=== PATIENT | female | born 1990 | race African-American/Black ===

== ENCOUNTER 2018-09-10 01:45 | Inpatient (IN) | payer OTHER ==
[~2018-09-10] VITALS: Ht 154.9 cm; Wt 65.6 kg
[2018-09-10] VITALS (7 sets, daily range): BP systolic 92–109; BP diastolic 61–78; PULSE 83–106; RESP 15–19; Ht 154.9 cm; Wt 65.6 kg
[~2018-09-10 01:45] MED LIST: EXJADE; HYDR500C3; HYDR500C3 PO; IBUP-1544 PO; NO NEW MEDS
[2018-09-10] MEDS ORDERED: KETOROLAC 30 MG INJ IV STA (05:37)
[2018-09-10] MEDS ORDERED: SOD CHLORIDE 0.9% 1,000 ML IV STA (05:37)
[2018-09-10] MEDS ORDERED: FENTAnyl 50 MCG/ML VIAL IV STA (06:28)
[2018-09-10] MEDS ORDERED: SOD CHLORIDE 0.9% 0 ML IV ONE (06:52)
[2018-09-10] MEDS ORDERED: ACETAMINOPHEN 325 MG TAB PO PRN ×2 (07:30→12:00)
[2018-09-10] MEDS ORDERED: ONDANSETRON 4 MG INJ IV PRN ×2 (07:30→12:00)
--- NOTE | 2018-09-10 08:58 | ERD ---
ER Documentation Chief Complaint Chief Complaint noe leg pain x2 days. hx sickle cell HPI 27-year-old sickle cell anemia patient presents to the emergency room with exacerbation of sickle cell pain. She describes 8 out of 10 throbbing pain in the left leg which is in a similar location. No recent fevers chills cough or chest pain. Her usual trigger is the environment it is been very cold recently. ROS All systems reviewed and are negative except as per history of present illness. Medications Home Meds Reported Medications Hydroxyurea* (Hydroxyurea*) 500 Mg Capsule, 500 MG PO DAILY 10/08/12 Discontinued Reported Medications [Exjade] No Conflict Check 10/08/12 [Exjade] No Conflict Check 01/06/12 [No New Meds] No Conflict Check 10/07/11 Hydroxyurea* (Hydroxyurea*) 500 Mg Capsule, 2500 DIRECTED 10/06/11 Ibuprofen* (Ibuprofen*) 800 Mg Tablet, 800 MG PO Q6 05/28/11 Allergies Allergies: Coded Allergies: oxycodone HCl (Verified Allergy, Severe, 09/10/18) hydromorphone (Verified Allergy, Unknown, 09/10/18) morphine (Verified Allergy, Unknown, 09/10/18) oxycodone (Verified Allergy, Unknown, 09/10/18) vancomycin (Verified Allergy, Unknown, 09/10/18) PMhx/Soc History of Surgery: Yes (HIP SURGERY; GALLBLADDER SURGERY) Anesthesia Reaction: No Hx Neurological Disorder: No Hx Respiratory Disorders: No Hx Cardiac Disorders: No Hx Psychiatric Problems: No Hx Miscellaneous Medical Probl: Yes (SICKLE CELL ANEMIA) Hx Alcohol Use: No Hx Substance Use: No Hx Tobacco Use: No Smoking Status: Never smoker FmHx Family History: No diabetes Physical Exam Vitals Vital Signs Date Temp Pulse Resp B/P (MAP) Pulse Ox O2 O2 Flow FiO2 Time Delivery Rate 09/10/18 87 17 94/73 (80) 98 Room Air 07:41 09/10/18 99.4 103 20 105/57 97 01:55 (73) Physical Exam General: Uncomfortable Head: Normocephalic, atraumatic. Eyes: Pupils equally reactive, EOM intact ENT: Moist mucous membranes Neck: Supple, no lymphadenopathy Respiratory: Lungs clear bilaterally, no distress Cardiovascular: RRR, no murmurs, rubs, or gallops Abdominal: Soft, non-tender, non-distended, no peritoneal signs : Deferred MSK: No edema, no unilateral swelling, 5/5 strength Neurologic: Alert and oriented, moving all extremities, normal speech, no focal weakness, no cerebellar signs Skin: No rash Psych: Normal mood Result Diagram: 09/10/18 0618 09/10/18 0617 Results 24 hrs Laboratory Tests Test 09/10/18 06:17 09/10/18 06:18 09/10/18 07:12 Sodium Level 140 mmol/L Potassium Level 3.8 mmol/L Chloride Level 113 mmol/L Carbon Dioxide Level 24 mmol/L Anion Gap 3 Blood Urea Nitrogen 5 mg/dl Creatinine 0.43 mg/dl Est Glomerular Filtrat > 60 mL/min Rate mL/min Glucose Level 92 mg/dl Calcium Level 9.1 mg/dl White Blood Count 10.1 10^3/ul Red Blood Count 1.89 10^6/ul Hemoglobin 6.4 g/dl Hematocrit 18.7 % Mean Corpuscular Volume 98.9 fl Mean Corpuscular Hemoglobin 33.9 pg Mean Corpuscular 34.2 g/dl Hemoglobin Concent Red Cell Distribution Width 20.2 % Platelet Count 498 10^3/UL Mean Platelet Volume 9.5 fl Immature Granulocytes % 0.400 % Neutrophils % 64.8 % Segmented Neutrophils % (Manual) 58 % Lymphocytes % 25.0 % Lymphocytes % (Manual) 32 % Monocytes % 6.9 % Monocytes % (Manual) 6 % Eosinophils % 2.3 % Eosinophils % (Manual) 4 % Basophils % 0.6 % Nucleated Red Blood Cells % 7 % Immature Granulocytes # 0.040 10^3/ul Neutrophils # 6.6 10^3/ul Lymphocytes (Manual) 3.2 10^3/ul Lymphocytes # 2.5 10^3/ul Monocytes # 0.7 10^3/ul Monocytes # (Manual) 0.6 10^3/ul Eosinophils # 0.2 10^3/ul Basophils # 0.1 10^3/ul Nucleated Red Blood Cells # 0.6 10^3/ul Pathologist Review (Hematology) YES Platelet Estimate INCREASED Giant Platelets 2 % Polychromasia 3+ Hypochromasia 1+ Poikilocytosis 1+ Anisocytosis 2+ Macrocytosis 1+ Sickle Cells 2+ Target Cells 1+ Ovalocytes 1+ Elliptocytes 1+ Urine Color YELLOW Urine Clarity CLEAR Urine pH 5.0 Urine Specific [place] 1.009 Urine Ketones NEGATIVE mg/dL Urine Nitrite NEGATIVE mg/dL Urine Bilirubin NEGATIVE mg/dL Urine Urobilinogen NEGATIVE mg/dL Urine Leukocyte Esterase NEGATIVE Ivon/ul Urine Microscopic RBC 0 /HPF Urine Microscopic WBC 1 /HPF Urine Bacteria FEW /HPF Urine Mucus FEW /HPF Urine Hemoglobin 1+ mg/dL Urine Glucose NEGATIVE mg/dL Urine Total Protein NEGATIVE mg/dl Absolute Reticulocyte Count 0.329 X10^6 Percent Reticulocyte Count 19.3 % Total Bilirubin 3.5 mg/dl Direct Bilirubin 0.00 mg/dl Indirect Bilirubin 3.5 mg/dl Aspartate Amino Transf (AST/SGOT) 25 IU/L Alanine 14 IU/L Aminotransferase (ALT/SGPT) Alkaline Phosphatase 34 IU/L Total Protein 6.8 g/dl Albumin 3.9 g/dl Current Medications Medications Dose Sig/Sukhi Start Time Status Last (Trade) Ordered Route PRN Stop Time Admin Dose Reason Admin Sodium 1,000 ml @ Q1H STAT 09/10/18 DC 09/10/18 Chloride 1,000 mls/hr IV 05:37 05:37 09/10/18 06:36 Ketorolac 30 mg ONCE STAT 09/10/18 DC 09/10/18 Tromethamine IV 05:37 06:51 (Toradol) 09/10/18 05:38 Fentanyl 75 mcg ONCE STAT 09/10/18 DC 09/10/18 (Sublimaze) IV 06:28 06:51 09/10/18 06:31 Sodium 0 ml @ 0 Q0M ONCE 09/10/18 DC Chloride mls/hr IV 06:52 09/10/18 06:54 Ondansetron 4 mg BRIDGE ORDER 09/10/18 HCl (Zofran PRN IV 07:30 Inj) NAUSEA/VOMITI 09/11/18 07:29 NG 650 mg ER BRIDGE 09/10/18 Acetaminophen PRN PO 07:30 (Tylenol .MILD PAIN 09/11/18 07:29 Tab) 1-3 OR TEMP Procedures/MDM LAB INTERPRETATION: I reviewed the laboratory testing and it shows evidence of hemolysis and elevated reticulocyte count MEDICAL DECISION MAKING: The patient presents with a acute exacerbation of pain crisis. The patient's exacerbation is likely secondary to cold weather. Patient will benefit from fluids and pain control medications. The patient's laboratory testing does show evidence of anemia that she would benefit from transfusion. For this reason the patient will be admitted for further management. I discussed with the patient and/or family the risks, benefits, alternatives of blood transfusion. This includes allergic reaction and infections including HIV and hepatitis. The patient and/or family were able to verbalize these risks, stated understanding. A document has been signed and placed in the chart. The patient is typed and crossmatched for 1 unit of packed red blood cells. The patient does describe a history of iron overload and needing chelation therapy. I spoke to Dr. Jang, our hematology oncology physician and she states that this can be done after the transfusion and outpatient basis in a nonemergent setting. She agrees with moving forward with blood transfusion and treatment of the patient's pain crisis. ER COURSE: * Patient was given IV fluids, pain control medication * The patient will be transfused 1 unit of packed red blood cells * Pain is improving. * No signs or symptoms concerning for acute chest or systemic illness. CONSULTATION: Hematology oncology: Dr. Jang DISPOSITION PLAN: Accepting care team and consultations: I discussed the current laboratory data, diagnostic imaging and emergency care provided. Admitting team: Dr. Ramos Admitting team indication: Insurance directed Departure Diagnosis: Primary Impression: Sickle cell pain crisis Additional Impression: Symptomatic anemia Condition: Stable TANIKA RAHMAN MD Sep 10, 2018 08:58
[2018-09-10] MEDS ORDERED: FENTAnyl 50 MCG/ML VIAL IV PRN (09:30)
[2018-09-10] MEDS ORDERED: HYDR-3980 PO (11:25)
[2018-09-10] MEDS ORDERED: NACL 0.9% 3 ML SYG IV SCH (12:00)
[2018-09-10] MEDS ORDERED: SOD CHLORIDE 0.9% 500 ML IV ONE (12:15)
[2018-09-10] MEDS ORDERED: HYDROCODONE/APAP (5/325) TAB PO PRN (12:30)
--- NOTE | 2018-09-10 12:44 | HP ---
Date/Time of Note Date/Time of Note DATE: 09/10/18 TIME: 12:39 Assessment/Plan VTE Prophylaxis SCD applied (from Nsg): Yes Pharmacological prophylaxis: LMWH Lines/Catheters IV Catheter Type (from Nrsg): Peripheral IV Assessment/Plan Hospital Course SUBJECTIVE: Patient crying extremely with 10 out of 10 pain on bilateral lower extremities. She says "my bones are breaking" OBJECTIVE: Vital signs-see below PHYSICAL EXAM: Constitutional: Young -Italian female, in a lot of pain 10 out of 10 on lower extremities. Psych: nl mood/affect, no complaints Head: atraumatic, normocephalic Eyes: nl conjunctiva, nl sclera ENMT: mucosa pink and moist, nl external ears & nose Neck: non-tender, supple Respiratory: clear to auscultation, normal air movement Cardiovascular: nl pulses, regular rate and rhythm Gastrointestinal: non-tender, soft, bowel sounds active in all 4 quadrants. Musculoskeletal/extremities: nl extremities to inspection, motor strength equal bilaterally, no focal deficit. Normal pulses,no cyanosis, no edema. Neurological: Alert oriented 3,nl speech, nl strength Skin: nl turgor ASSESSMENT/PLAN: 27-year-old female with history of sickle cell anemia, here with sickle cell crisis. 1. Acute sickle cell crisis -Fluid challenge -Unfortunately, due to multiple opiate allergies, we will do IV pain control w/ Toradol with limited dose while monitoring renal function closely. We will also start patient on IV Tylenol x 24 hours duration => if no improvement in pain status, will need to consider for fentanyl and transferring patient to ICU level of care. -Consulted Dr. Khan for pain management -No symptoms concerning for cardiac acute issues. -VTE prophylaxis -Ultrasound to rule out DVTs 2. Sickle cell anemia -HH 6.4/18.7 -Receiving 1 unit PRBC=>Judicious tx in the setting of elevated ferritin... -Repeat H&H after transfusion 3. Elevated ferritin -ER spoke with oncologist , who recommended outpatient follow-up for consideration for chelation treatment if indicated. -Judicious transfusion... DVT prophylaxis: Lovenox PUD prophylaxis: Protonix CODE STATUS: Full code Diet: Regular Rest of the management depend on hospital course. Approximately 60 m spent on this history and physical. Patient was seen in collaboration with Dr.Brian Result Diagram: 09/10/18 0618 09/10/18 0617 Results 24hrs Laboratory Tests Test 09/10/18 06:17 09/10/18 06:18 09/10/18 07:12 Sodium Level 140 Potassium Level 3.8 Chloride Level 113 H Carbon Dioxide Level 24 Anion Gap 3 L Blood Urea Nitrogen 5 L Creatinine 0.43 L Est Glomerular Filtrat Rate mL/min > 60 Glucose Level 92 Calcium Level 9.1 White Blood Count 10.1 Red Blood Count 1.89 L Hemoglobin 6.4 *L Hematocrit 18.7 L Mean Corpuscular Volume 98.9 Mean Corpuscular Hemoglobin 33.9 H Mean Corpuscular Hemoglobin Concent 34.2 Red Cell Distribution Width 20.2 H Platelet Count 498 H Mean Platelet Volume 9.5 Immature Granulocytes % 0.400 Neutrophils % 64.8 Segmented Neutrophils % (Manual) 58 Lymphocytes % 25.0 Lymphocytes % (Manual) 32 Monocytes % 6.9 Monocytes % (Manual) 6 Eosinophils % 2.3 Eosinophils % (Manual) 4 Basophils % 0.6 Nucleated Red Blood Cells % 7 H Immature Granulocytes # 0.040 H Neutrophils # 6.6 Lymphocytes (Manual) 3.2 H Lymphocytes # 2.5 Monocytes # 0.7 Monocytes # (Manual) 0.6 Eosinophils # 0.2 Basophils # 0.1 Nucleated Red Blood Cells # 0.6 H Pathologist Review (Hematology) YES Platelet Estimate INCREASED Giant Platelets 2 H Polychromasia 3+ Hypochromasia 1+ Poikilocytosis 1+ Anisocytosis 2+ Macrocytosis 1+ Sickle Cells 2+ Target Cells 1+ Ovalocytes 1+ Elliptocytes 1+ Urine Color YELLOW Urine Clarity CLEAR Urine pH 5.0 Urine Specific [place] 1.009 Urine Ketones NEGATIVE Urine Nitrite NEGATIVE Urine Bilirubin NEGATIVE Urine Urobilinogen NEGATIVE Urine Leukocyte Esterase NEGATIVE Urine Microscopic RBC 0 Urine Microscopic WBC 1 Urine Bacteria FEW A Urine Mucus FEW A Urine Hemoglobin 1+ H Urine Glucose NEGATIVE Urine Total Protein NEGATIVE Absolute Reticulocyte Count 0.329 H Percent Reticulocyte Count 19.3 H Ferritin 3040.0 H Total Bilirubin 3.5 H Direct Bilirubin 0.00 Indirect Bilirubin 3.5 H Aspartate Amino Transf (AST/SGOT) 25 Alanine Aminotransferase (ALT/SGPT) 14 Alkaline Phosphatase 34 L Total Protein 6.8 Albumin 3.9 HPI/ROS Admit Date/Time Admit Date/Time Sep 10, 2018 at 07:21 Hx of Present Illness 27-year-old AA female with sickle cell anemia, came to the emergency room with severe lower extremity pain. Patient denied chest pain, palpitation, shortness of breath, nausea, vomiting, abdominal pain, loss of consciousness, dizziness, numbness, tingling or other constitutional symptoms. Patient's labs showed hemoglobin 6.4, hematocrit 18.7, platelet 498, positive nucleated RBCs. Patient also noted with highly elevated ferritin level 3040. UA unremarkable. In ER, patient was given 75 mcg fentanyl IV, normal saline bolus, 30 mg Toradol and patient was admitted to medical surgical floor for pain management. ROS A 12 point review of system was assessed and is negative other than what is mentioned in the HPI. PMH/Family/Social Past Medical History See HPI Medications Current Medications Ondansetron HCl (Zofran Inj) 4 mg BRIDGE ORDER PRN IV NAUSEA/VOMITING; Start 09/10/18 at 07:30; Stop 09/11/18 at 07:29 Acetaminophen (Tylenol Tab) 650 mg ER BRIDGE PRN PO .MILD PAIN 1-3 OR TEMP; S tart 09/10/18 at 07:30; Stop 09/11/18 at 07:29 Sodium Chloride 1,000 ml @ 125 mls/hr Q8H IV ; Start 09/10/18 at 13:00 IV Flush (NS 3 ml) 3 ml PER PROTOCOL IV ; Start 09/10/18 at 12:00 Ondansetron HCl (Zofran Inj) 4 mg Q6H PRN IV NAUSEA/VOMITING; Start 09/10/18 at 12:00 Acetaminophen (Tylenol Tab) 650 mg Q6H PRN PO .PAIN 1-3 OR TEMP; Start 09/10/18 at 12:00 Docusate Sodium (Colace) 100 mg Q12H PRN PO .CONSTIPATION; Start 09/10/18 at 12:00 Famotidine (Pepcid) 20 mg Q12 PO ; Start 09/10/18 at 21:00 Sodium Chloride 500 ml @ 500 mls/hr Q1H ONCE IV ; Start 09/10/18 at 12:15; Stop 09/10/18 at 13:14 Acetaminophen/ Hydrocodone Bitart ([place] (5/325)) 1 tab Q4H PRN PO MODERATE PAIN LEVEL 4-6 Last administered on 09/10/18at 12:23; Admin Dose 1 TAB; Start 09/10/18 at 12:30 Ketorolac Tromethamine (Toradol) 30 mg Q6H PRN IV PAIN LEVEL 1-3; Start 09/10/18 at 12:30; Stop 09/13/18 at 12:29 Coded Allergies: oxycodone HCl (Verified Allergy, Severe, 09/10/18) hydromorphone (Verified Allergy, Unknown, 09/10/18) morphine (Verified Allergy, Unknown, 09/10/18) oxycodone (Verified Allergy, Unknown, 09/10/18) vancomycin (Verified Allergy, Unknown, 09/10/18) Past Surgical History None Social History Denies history of alcohol, smoking or illicit drug use. Smoking Status: Never smoker Exam/Review of Systems Vital Signs Vitals Vital Signs Date Temp Pulse Resp B/P (MAP) Pulse Ox O2 O2 Flow FiO2 Time Delivery Rate 09/10/18 98.9 92 17 109/69 96 Room Air 11:28 (82) JUAQUIN PARDO NP Sep 10, 2018 12:44
[2018-09-10] MEDS: KETOROLAC 30 MG INJ IV PRN ×2 (12:59→20:01)
[2018-09-10] MEDS: SOD CHLORIDE 0.9% 1,000 ML IV SCH ×2 (13:14→19:52)
[2018-09-10] MEDS: ENOXAPARIN 40 MG/0.4 ML SYG SC SCH (13:14)
[2018-09-10] MEDS: ACETAMINOPHEN 1000MG/100ML IV 100 ML IVPB SCH ×2 (14:40→20:30)
[2018-09-10] MEDS ORDERED: SOD CHLORIDE 0.9% 250 ML IV* ONE (15:35)
[2018-09-10] MEDS: FENTAnyl 50 MCG/ML VIAL IV PRN (20:02)
[2018-09-10] MEDS: FAMOTIDINE 20 MG TAB PO SCH (20:30)
[2018-09-11] VITALS (24 sets, daily range): BP systolic 82–110; BP diastolic 57–86; PULSE 65–103; RESP 13–28
[2018-09-11] MEDS: SOD CHLORIDE 0.9% 1,000 ML IV SCH ×4 (00:56→18:33)
[2018-09-11] MEDS: FENTAnyl 50 MCG/ML VIAL IV PRN ×7 (01:22→21:45)
[2018-09-11] MEDS: KETOROLAC 30 MG INJ IV PRN ×3 (03:13→16:38)
[2018-09-11] MEDS: ACETAMINOPHEN 1000MG/100ML IV 100 ML IVPB SCH ×2 (03:13→08:47)
[2018-09-11] MEDS ORDERED: FENTAnyl 50 MCG/ML VIAL IV ONE (03:30)
--- NOTE | 2018-09-11 06:53 | QN ---
Documentation Comment Patient's hemoglobin once again low, however, patient has refused additional packed red blood cell due to her elevated ferritin levels, will defer to day team physician to determine if additional transfusion is necessary and if they can convince patient to get transfusion. HEATH LEVIN Sep 11, 2018 06:53
[2018-09-11] MEDS: FAMOTIDINE 20 MG TAB PO SCH ×3 (08:41→21:45)
[2018-09-11] MEDS: HYDROXYUREA 500 MG CAP PO SCH (09:00)
[2018-09-11] MEDS: ENOXAPARIN 40 MG/0.4 ML SYG SC SCH (09:19)
--- NOTE | 2018-09-11 10:59 | CONS ---
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 She has been transfused I agree to continue to increase her hemoglobin higher than 6, patient's baseline is 7.5. Also agree with IV hydration, deferoxamine, will discuss patient's pnenmonia and influenza vaccinations status after she is more stable. Consultation Date/Type/Reason Admit Date/Time Sep 10, 2018 at 07:21 Date/Time of Note DATE: 09/11/18 TIME: 10:49 Hx of Present Illness This is a pain management consultation on this 27-year-old female who has a history of sickle cell crisis. Is certain that may have caused this crisis. She denies nausea vomiting chest pain shortness of breath cough hemoptysis greenish yellowish mucus or pleuritic chest pain. She denies abdominal discomfort diarrhea constipation frequency or burning when she urinates she states that she has joint pains that she describes as total body discomfort with except "exploding bones" and bilateral lower extremity. However she does states this is her usual presentation. Patient's takes [place] Toradol and hydroxyurea 500 mg daily at home for exacerbation of pain but she states that this pain degree could not be controlled with above medications. Otherwise she states this is her usual presentation for the severity of her pain. She states that she has been treated in the past only with fentanyl she has untoward side effects associated with morphine Dilaudid most oral pain control medication with the exception of [place]. When asked what type of reaction he had asked she states that she has severe pain in her back when she receives Dilaudid or morphine. All of her health care has been given to her at [facility]. Because of insurance situation she was transferred to this hospital per patient. She states that only fentanyl works for her pain with as needed doses also of Toradol. We explained to her that Toradol cannot be given on the medical surgical floor nor in the telemetry floor. In spite of that we had made arrangements for him to be transferred to the intensive care unit to be treated with fentanyl for exacerbation of pain with possible morbid untoward side effects associated with use of other IV opioids. There is no indication to use topical fentanyl as is not mediately titratable at the rate this patient may require higher doses of fentanyl.. Constitutional: no complaints, improved Eyes: no complaints ENT: no complaints Respiratory: no complaints Cardiovascular: no complaints Gastrointestinal: no complaints Genitourinary: no complaints Musculoskeletal: other (Refer to history of present illness) Skin: no complaints Neurologic: no complaints Endocrine: no complaints Lymphatic: no complaints Psychological: no complaints, nl mood/affect Immunologic: no complaints Past Medical History Home Meds Reported Medications Hydrocodone/Acetaminophen ([place] 10-325 Tablet) 1 Each Tablet, 1 EACH PO, TAB 09/10/18 Hydroxyurea* (Hydroxyurea*) 500 Mg Capsule, 500 MG PO DAILY 10/08/12 Discontinued Reported Medications [Exjade] No Conflict Check 10/08/12 [Exjade] No Conflict Check 01/06/12 [No New Meds] No Conflict Check 10/07/11 Hydroxyurea* (Hydroxyurea*) 500 Mg Capsule, 2500 DIRECTED 10/06/11 Ibuprofen* (Ibuprofen*) 800 Mg Tablet, 800 MG PO Q6 05/28/11 Medications Current Medications Sodium Chloride 1,000 ml @ 125 mls/hr Q8H IV Last administered on 09/11/18at 10:21; Admin Dose 125 MLS/HR; Start 09/10/18 at 13:00 IV Flush (NS 3 ml) 3 ml PER PROTOCOL IV ; Start 09/10/18 at 12:00 Ondansetron HCl (Zofran Inj) 4 mg Q6H PRN IV NAUSEA/VOMITING; Start 09/10/18 at 12:00 Acetaminophen (Tylenol Tab) 650 mg Q6H PRN PO .PAIN 1-3 OR TEMP; Start 09/10/18 at 12:00 Docusate Sodium (Colace) 100 mg Q12H PRN PO .CONSTIPATION; Start 09/10/18 at 12:00 Famotidine (Pepcid) 20 mg Q12 PO Last administered on 09/11/18at 08:41; Admin Dose 20 MG; Start 09/10/18 at 21:00 Enoxaparin Sodium (Lovenox) 40 mg DAILY SC Last administered on 09/11/18at 09:19; Admin Dose 40 MG; Start 09/10/18 at 12:30 Hydroxyurea (Hydrea) 500 mg DAILY PO ; Start 09/11/18 at 09:00 Acetaminophen 100 ml @ 400 mls/hr Q6H IVPB Last administered on 09/11/18at 08:47; Admin Dose 400 MLS/HR; Start 09/10/18 at 15:30; Stop 09/11/18 at 15:29 Fentanyl (Sublimaze) 50 mcg Q3H PRN IV SEVERE PAIN LEVEL 7-10 Last administered on 09/11/18at 08:47; Admin Dose 50 MCG; Start 09/10/18 at 17:00 Allergies: Coded Allergies: oxycodone HCl (Verified Allergy, Severe, 09/10/18) hydromorphone (Verified Allergy, Unknown, 09/10/18) morphine (Verified Allergy, Unknown, 09/10/18) oxycodone (Verified Allergy, Unknown, 09/10/18) vancomycin (Verified Allergy, Unknown, 09/10/18) Past Surgical History Past Surgical Hx: other (In distress cannot answer questions at this time) Social History Alcohol Use: none Smoking Status: Never smoker Exam/Review of Systems Exam Vitals Vital Signs Date Temp Pulse Resp B/P (MAP) Pulse Ox O2 O2 Flow FiO2 Time Delivery Rate 09/11/18 65 08:00 09/11/18 14 90/61 (71) 100 06:00 09/11/18 Nasal 2.0 05:00 Cannula 09/11/18 98.3 04:00 Intake and Output 09/10/18 09/10/18 09/11/18 1515:00 23:00 07:00 IntakeIntake Total 950 ml 1220 ml 975 ml OutputOutput Total 300 ml 500 ml BalanceBalance 950 ml 920 ml 475 ml Constitutional: distress, frail Psych: anxiety Head: normocephalic, atraumatic; No lacerations, No hematomas, No other Eyes: nl conjunctiva, EOMI, nl lids, nl sclera, PERRL ENMT: nl external ears & nose, nl lips & teeth, nl nasal mucosa & septum; No mucosa pink and moist, No intubated, No tympanic membranes, No other Neck: supple, non-tender; No jvd, No bruits, No masses, No thyromegaly, No nuchal rigidity, No other Respiratory: clear to auscultation, normal air movement; No congested cough, No crackles/rales, No diminished breath sounds, No intercostal retraction, No labored breathing, No respirations, No tactile f remitus, No wheezing, No other Cardiovascular: regular rate and rhythm, nl pulses; No bruits, No diastolic murmur, No edema, No gallop, No irregular rhythm, No jugular venous distention (JVD), No murmurs/extra sounds, No rub, No systolic murmur, No S3, No S4, No other Gastrointestinal: soft, nl liver, spleen, non-tender; No ascites, No bowel sounds, No distended, No firm, No hepatomegaly, No mass, No rebound or guarding, No splenomegaly, No surgical scars, No tender, No other Musculoskeletal: other (Range of motion bilateral lower extremities grossly intact, pain associated with flexion extension internal and external rotation bilateral knees bilateral ankles no gross evidence of erythema streaking edema flocculence); No nl extremities to inspection, No nl gait and stance, No joint tenderness, No muscle tone, No muscle weakness, No range of motion, No spine non-tender, No swelling Neurological: 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-XII intact, nl mental status, nl speech, nl strength; No confused, No DTR's symmetric, No focal weakness, No lethargic, No numbness, No reflexes, No unresponsive, No other Results Result Diagram: 09/11/18 0510 09/11/18 0510 Results 24hrs Laboratory Tests Test 09/10/18 14:40 09/11/18 05:10 Hemoglobin 6.8 *L 6.3 *L Hematocrit 19.7 L 18.3 L White Blood Count 7.2 # Red Blood Count 2.01 L Mean Corpuscular Volume 91.0 Mean Corpuscular Hemoglobin 31.3 Mean Corpuscular Hemoglobin Concent 34.4 Red Cell Distribution Width 24.5 #H Platelet Count 418 H Mean Platelet Volume 9.3 Immature Granulocytes % 0.400 Neutrophils % Segmented Neutrophils % (Manual) 58 Band Neutrophils % (Manual) 1 Lymphocytes % Lymphocytes % (Manual) 35 Monocytes % Monocytes % (Manual) 3 Eosinophils % Eosinophils % (Manual) 3 Basophils % Nucleated Red Blood Cells % 5 H Immature Granulocytes # 0.030 Neutrophils # Neutrophils # (Manual) 4.2 Band Neutrophils # 0.0 Lymphocytes (Manual) 2.5 Lymphocytes # Monocytes # Monocytes # (Manual) 0.2 L Eosinophils # Basophils # Nucleated Red Blood Cells # Platelet Estimate NORMAL Giant Platelets 1 H Polychromasia 3+ Poikilocytosis 2+ Anisocytosis 2+ Microcytosis 2+ Macrocytosis 1+ Sickle Cells 2+ Sodium Level 140 Potassium Level 3.5 Chloride Level 111 H Carbon Dioxide Level 23 Anion Gap 6 Blood Urea Nitrogen 8 Creatinine 0.41 L Est Glomerular Filtrat Rate mL/min > 60 Glucose Level 90 Calcium Level 8.6 Magnesium Level 2.1 Medications Medication Current Medications Sodium Chloride 1,000 ml @ 125 mls/hr Q8H IV Last administered on 09/11/18at 10:21; Admin Dose 125 MLS/HR; Start 09/10/18 at 13:00 IV Flush (NS 3 ml) 3 ml PER PROTOCOL IV ; Start 09/10/18 at 12:00 Ondansetron HCl (Zofran Inj) 4 mg Q6H PRN IV NAUSEA/VOMITING; Start 09/10/18 at 12:00 Acetaminophen (Tylenol Tab) 650 mg Q6H PRN PO .PAIN 1-3 OR TEMP; Start 09/10/18 at 12:00 Docusate Sodium (Colace) 100 mg Q12H PRN PO .CONSTIPATION; Start 09/10/18 at 12:00 Famotidine (Pepcid) 20 mg Q12 PO Last administered on 09/11/18at 08:41; Admin Dose 20 MG; Start 09/10/18 at 21:00 Enoxaparin Sodium (Lovenox) 40 mg DAILY SC Last administered on 09/11/18 09:19; Admin Dose 40 MG; Start 09/10/18 at 12:30 Hydroxyurea (Hydrea) 500 mg DAILY PO ; Start 09/11/18 at 09:00 Acetaminophen 100 ml @ 400 mls/hr Q6H IVPB Last administered on 09/11/18at 08:47; Admin Dose 400 MLS/HR; Start 09/10/18 at 15:30; Stop 09/11/18 at 15:29 Fentanyl (Sublimaze) 50 mcg Q3H PRN IV SEVERE PAIN LEVEL 7-10 Last administered on 09/11/18at 08:47; Admin Dose 50 MCG; Start 09/10/18 at 17:00 KATIE TORRES Sep 11, 2018 10:59
--- NOTE | 2018-09-11 14:23 | CONS ---
Assessment/Plan Assessment/Plan Assessment/Plan (Daily) #Sickle Cell Crisis #iron over load -pt's Hg has dropped to 6 which is certainly lower than her baseline of 7-8. -patient states that she does not want to accept blood transfusion unless she can also get an iron chelator given her iron overload. -will start Deferoxamine 2600mg IV q day s 5 - 7 days IV. ferritin is currently > 3000 -once she has started the iron chelation we can transfuse 2 units of PRBCS. -continue fentanyl and toradol per pain management Thank you for the opportunity to participate in this patients care A total of 40 minutes of face to face time was spent speaking with the patient, of which greater than 50% was spent in counseling and coordination of care and the detailed question and answer session. Consultation Date/Type/Reason Admit Date/Time Sep 10, 2018 at 07:21 Date of Consultation: Sep 11, 2018 Type of Consult Hematology Reason for Consultation sickle cell crisis Requesting Provider: EBONY CONTE Date/Time of Note DATE: 09/11/18 TIME: 14:11 Hx of Present Illness 27 yo female with Sickle Cell Anemia and iron over load who presented on 09/10/18 to [facility] ER with sickle cell crisis stating my bones are breaking. Patient has since been started on IV fluids and O2. AT home her pain is usually controlled with [place], Toradol and Hydroxyurea. Although now, pt states fentanyl is the only pain medication that works for her. Pt has been transferred to the ICU for more careful monitoring. Pt states she is concerned about a blood transfusion due to her current state of iron over load. On admission, patients HG 6.4 and ferritin is at 3040. Pt states her baseline Hg is usually between 7-8. Constitutional: diaphoresis, poor po, requiring O2 Eyes: no complaints ENT: no complaints Respiratory: no complaints, pain, pleuritic pain, shortness of breath Cardiovascular: chest pain, lightheadedness Gastrointestinal: no complaints, pain, decreased appetite, nausea Musculoskeletal: back pain, bone/joint pain, neck pain, restricted range of motion Skin: no complaints Neurologic: dizziness, headache Endocrine: no complaints Psychological: anxiety, depression Past Medical History Home Meds Reported Medications Hydrocodone/Acetaminophen ([place] 10-325 Tablet) 1 Each Tablet, 1 EACH PO, TAB 09/10/18 Hydroxyurea* (Hydroxyurea*) 500 Mg Capsule, 500 MG PO DAILY 10/08/12 Discontinued Reported Medications [Exjade] No Conflict Check 10/08/12 [Exjade] No Conflict Check 01/06/12 [No New Meds] No Conflict Check 10/07/11 Hydroxyurea* (Hydroxyurea*) 500 Mg Capsule, 2500 DIRECTED 10/06/11 Ibuprofen* (Ibuprofen*) 800 Mg Tablet, 800 MG PO Q6 05/28/11 Medications Current Medications Sodium Chloride 1,000 ml @ 150 mls/hr Q6H40M IV Last administered on 09/11/18at 11:32; Admin Dose 150 MLS/HR; Start 09/10/18 at 13:00 IV Flush (NS 3 ml) 3 ml PER PROTOCOL IV ; Start 09/10/18 at 12:00 Ondansetron HCl (Zofran Inj) 4 mg Q6H PRN IV NAUSEA/VOMITING; Start 09/10/18 at 12:00 Acetaminophen (Tylenol Tab) 650 mg Q6H PRN PO .PAIN 1-3 OR TEMP; Start 09/10/18 at 12:00 Docusate Sodium (Colace) 100 mg Q12H PRN PO .CONSTIPATION; Start 09/10/18 at 1 2:00 Famotidine (Pepcid) 20 mg Q12 PO Last administered on 09/11/18at 08:41; Admin Dose 20 MG; Start 09/10/18 at 21:00 Enoxaparin Sodium (Lovenox) 40 mg DAILY SC Last administered on 09/11/18at 09:19; Admin Dose 40 MG; Start 09/10/18 at 12:30 Hydroxyurea (Hydrea) 500 mg DAILY PO ; Start 09/11/18 at 09:00 Acetaminophen 100 ml @ 400 mls/hr Q6H IVPB Last administered on 09/11/18at 08:47; Admin Dose 400 MLS/HR; Start 09/10/18 at 15:30; Stop 09/11/18 at 15:29 Fentanyl (Sublimaze) 50 mcg Q3H PRN IV SEVERE PAIN LEVEL 7-10 Last administered on 09/11/18at 11:54; Admin Dose 50 MCG; Start 09/10/18 at 17:00 Ketorolac Tromethamine (Toradol) 30 mg Q6H PRN IV PAIN; Start 09/11/18 at 16:30; Stop 09/14/18 at 16:29 Allergies: Coded Allergies: oxycodone HCl (Verified Allergy, Severe, 09/10/18) hydromorphone (Verified Allergy, Unknown, 09/10/18) morphine (Verified Allergy, Unknown, 09/10/18) oxycodone (Verified Allergy, Unknown, 09/10/18) vancomycin (Verified Allergy, Unknown, 09/10/18) Past Surgical History Past Surgical Hx: other (In distress cannot answer questions at this time) Social History Alcohol Use: none Smoking Status: Never smoker Exam/Review of Systems Exam Vitals Vital Signs Date Temp Pulse Resp B/P (MAP) Pulse Ox O2 O2 Flow FiO2 Time Delivery Rate 09/11/18 96 20 88/64 (72) 100 Nasal 2.0 13:00 Cannula 09/11/18 98.2 12:00 Intake and Output 09/10/18 09/10/18 09/11/18 1515:00 23:00 07:00 IntakeIntake Total 950 ml 1220 ml 1100 ml OutputOutput Total 300 ml 500 ml BalanceBalance 950 ml 920 ml 600 ml Constitutional: alert, oriented, distress, frail Psych: anxiety, depression Head: normocephalic, atraumatic Eyes: nl conjunctiva ENMT: nl external ears & nose Neck: supple Respiratory: clear to auscultation Cardiovascular: regular rate and rhythm Gastrointestinal: soft Musculoskeletal: joint tenderness, muscle weakness Results Result Diagram: 09/11/18 0510 09/11/18 0510 Results 24hrs Laboratory Tests Test 09/10/18 14:40 09/11/18 05:10 Hemoglobin 6.8 *L 6.3 *L Hematocrit 19.7 L 18.3 L White Blood Count 7.2 # Red Blood Count 2.01 L Mean Corpuscular Volume 91.0 Mean Corpuscular Hemoglobin 31.3 Mean Corpuscular Hemoglobin Concent 34.4 Red Cell Distribution Width 24.5 #H Platelet Count 418 H Mean Platelet Volume 9.3 Immature Granulocytes % 0.400 Neutrophils % Segmented Neutrophils % (Manual) 58 Band Neutrophils % (Manual) 1 Lymphocytes % Lymphocytes % (Manual) 35 Monocytes % Monocytes % (Manual) 3 Eosinophils % Eosinophils % (Manual) 3 Basophils % Nucleated Red Blood Cells % 5 H Immature Granulocytes # 0.030 Neutrophils # Neutrophils # (Manual) 4.2 Band Neutrophils # 0.0 Lymphocytes (Manual) 2.5 Lymphocytes # Monocytes # Monocytes # (Manual) 0.2 L Eosinophils # Basophils # Nucleated Red Blood Cells # Platelet Estimate NORMAL Giant Platelets 1 H Polychromasia 3+ Poikilocytosis 2+ Anisocytosis 2+ Microcytosis 2+ Macrocytosis 1+ Sickle Cells 2+ Sodium Level 140 Potassium Level 3.5 Chloride Level 111 H Carbon Dioxide Level 23 Anion Gap 6 Blood Urea Nitrogen 8 Creatinine 0.41 L Est Glomerular Filtrat Rate mL/min > 60 Glucose Level 90 Calcium Level 8.6 Magnesium Level 2.1 Medications Medication Current Medications Sodium Chloride 1,000 ml @ 150 mls/hr Q6H40M IV Last administered on 09/11/18at 11:32; Admin Dose 150 MLS/HR; Start 09/10/18 at 13:00 IV Flush (NS 3 ml) 3 ml PER PROTOCOL IV ; Start 09/10/18 at 12:00 Ondansetron HCl (Zofran Inj) 4 mg Q6H PRN IV NAUSEA/VOMITING; Start 09/10/18 at 12:00 Acetaminophen (Tylenol Tab) 650 mg Q6H PRN PO .PAIN 1-3 OR TEMP; Start 09/10/18 at 12:00 Docusate Sodium (Colace) 100 mg Q12H PRN PO .CONSTIPATION; Start 09/10/18 at 12:00 Famotidine (Pepcid) 20 mg Q12 PO Last administered on 09/11/18at 08:41; Admin Dose 20 MG; Start 09/10/18 at 21:00 Enoxaparin Sodium (Lovenox) 40 mg DAILY SC Last administered on 09/11/18at 09:19; Admin Dose 40 MG; Start 09/10/18 at 12:30 Hydroxyurea (Hydrea) 500 mg DAILY PO ; Start 09/11/18 at 09:00 Acetaminophen 100 ml @ 400 mls/hr Q6H IVPB Last administered on 09/11/18at 08:47; Admin Dose 400 MLS/HR; Start 09/10/18 at 15:30; Stop 09/11/18 at 15:29 Fentanyl (Sublimaze) 50 mcg Q3H PRN IV SEVERE PAIN LEVEL 7-10 Last administered on 09/11/18at 11:54; Admin Dose 50 MCG; Start 09/10/18 at 17:00 Ketorolac Tromethamine (Toradol) 30 mg Q6H PRN IV PAIN; Start 09/11/18 at 16:30; Stop 09/14/18 at 16:29 ALFREDA POLLOCK M.D. Sep 11, 2018 14:22
[2018-09-12] VITALS (24 sets, daily range): BP systolic 85–112; BP diastolic 57–82; PULSE 63–99; RESP 13–22
[2018-09-12] MEDS: FENTAnyl 50 MCG/ML VIAL IV PRN ×4 (00:33→10:21)
[2018-09-12] MEDS: KETOROLAC 30 MG INJ IV PRN ×3 (00:33→19:58)
[2018-09-12] MEDS: SOD CHLORIDE 0.9% 1,000 ML IV SCH ×4 (00:36→19:58)
--- NOTE | 2018-09-12 07:11 | CONS ---
Assessment/Plan Assessment/Plan Assessment/Plan (Daily) #Sickle Cell Crisis #iron over load -pt's Hg has dropped to 6.3 which is certainly lower than her baseline of 7-8. -patient states that she does not want to accept blood transfusion unless she get an iron chelator given her iron overload. -will start Deferoxamine 2600mg IV q day s 5 - 7 days IV. ferritin is currently > 3000 -once she has started the iron chelation we can transfuse 2 units of PRBCS. -continue fentanyl and Toradol per pain management Patient is seen in collaboration with Dr Jang Consultation Date/Type/Reason Admit Date/Time Sep 10, 2018 at 07:21 Initial Consult Date 09/11/18 Type of Consult oncology Reason for Consultation Sickle Cell Anemia Requesting Provider: EBONY CONTE Date/Time of Note DATE: 09/12/18 TIME: 07:05 24 HR Interval Summary Free Text/Dictation Patient is seen at 0500 - resting; seems comfortable; got Fentanyl for pain; effective pain control - no new issues reported last nigh per staff Detailed Summary Eyes: no complaints ENT: no complaints Respiratory: no complaints Cardiovascular: no complaints Gastrointestinal: no complaints Genitourinary: no complaints Musculoskeletal: other (general body pain) Skin: no complaints Neurologic: no complaints Endocrine: no complaints Psychological: nl mood/affect Immunologic: no complaints Exam/Review of Systems Exam Vitals Vital Signs Date Temp Pulse Resp B/P (MAP) Pulse Ox O2 O2 Flow FiO2 Time Delivery Rate 09/12/18 69 15 94/71 (79) 100 Nasal 2.0 06:00 Cannula 09/12/18 28 05:12 09/12/18 98.0 05:00 Intake and Output 09/11/18 09/11/18 09/12/18 1515:00 23:00 07:00 IntakeIntake Total 1904.65 ml 2355 ml 1885 ml OutputOutput Total 600 ml 500 ml 1450 ml BalanceBalance 1304.65 ml 1855 ml 435 ml Constitutional: alert, well developed Psych: nl mood/affect Head: atraumatic Eyes: EOMI, nl lids, nl sclera ENMT: nl external ears & nose Neck: non-tender Respiratory: diminished breath sounds Cardiovascular: nl pulses, other (s1s2) Gastrointestinal: soft, non-tender Musculoskeletal: nl extremities to inspection Extremities: normal pulses Neurological: nl mental status, nl speech Lymph: nontender Results Result Diagram: 09/11/1850909/11/18509 Medications Medication Current Medications Sodium Chloride 1,000 ml @ 150 mls/hr Q6H40M IV Last administered on 09/12/18at 00:36; Admin Dose 150 MLS/HR; Start 09/10/18 at 13:00 IV Flush (NS 3 ml) 3 ml PER PROTOCOL IV ; Start 09/10/18 at 12:00 Ondansetron HCl (Zofran Inj) 4 mg Q6H PRN IV NAUSEA/VOMITING; Start 09/10/18 at 12:00 Acetaminophen (Tylenol Tab) 650 mg Q6H PRN PO .PAIN 1-3 OR TEMP; Start 09/10/18 at 12:00 Docusate Sodium (Colace) 100 mg Q12H PRN PO .CONSTIPATION; Start 09/10/18 at 12:00 Famotidine (Pepcid) 20 mg Q12 PO Last administered on 09/11/18at 21:45; Admin Dose 20 MG; Start 09/10/18 at 21:00 Enoxaparin Sodium (Lovenox) 40 mg DAILY SC Last administered on 09/11/18at 09:19; Admin Dose 40 MG; Start 09/10/18 at 12:30 Hydroxyurea (Hydrea) 500 mg DAILY PO ; Start 09/11/18 at 09:00 Fentanyl (Sublimaze) 50 mcg Q3H PRN IV SEVERE PAIN LEVEL 7-10 Last administered on 09/12/18at 04:21; Admin Dose 50 MCG; Start 09/10/18 at 17:00 Ketorolac Tromethamine (Toradol) 30 mg Q6H PRN IV PAIN Last administered on 09/12/18at 06:35; Admin Dose 30 MG; Start 09/11/18 at 16:30; Stop 09/14/18 at 16:29 JH ALAN Sep 12, 2018 07:11
[2018-09-12] MEDS: FAMOTIDINE 20 MG TAB PO SCH ×2 (08:29→20:00)
[2018-09-12] MEDS: ENOXAPARIN 40 MG/0.4 ML SYG SC SCH (08:33)
[2018-09-12] MEDS: HYDROXYUREA 500 MG CAP PO SCH (09:45)
[2018-09-12] MEDS: HYDROCODONE/APAP (10/325) TAB PO PRN ×3 (12:33→22:24)
[2018-09-12] MEDS: DIPHENHYDRAMINE 50 MG INJ IV PRN ×2 (14:45→23:25)
--- NOTE | 2018-09-12 16:42 | EN ---
Date/Time of Note Date/Time of Note LATE PROGRESS NOTE DATE OF SERVICE:08/11/18 SUBJECTIVE: OBJECTIVE: LABS AND IMAGING: ASSESSMENT: PLAN: Event Note Medicine Medicine Event Note Progress note 09/11/18 SUBJECTIVE: states pain is better, but still quite lethargic, states reaction to dilaudid and morphine is intolerance not allergy but doesn't want them. She has tried them multiple times and had the same reactions PHYSICAL EXAM: Constitutional: Young -[place] female, lethargic but no distress currently Psych: nl mood/affect, no complaints Head: atraumatic, normocephalic Eyes: + conjuctival pallor, mild scleral icterus ENMT: mucosa pink and moist, nl external ears & nose Neck: non-tender, supple Respiratory: clear to auscultation, normal air movement Cardiovascular: nl pulses, regular rate and rhythm Gastrointestinal: non-tender, soft, bowel sounds active in all 4 quadrants. Musculoskeletal/extremities: nl extremities to inspection, motor strength equal bilaterally, no focal deficit. Normal pulses,no cyanosis, no edema. Neurological: Alert oriented 3,nl speech, nl strength Skin: nl turgor Labs / Vitals / Imaging noted ASSESSMENT/PLAN: 27-year-old female with history of sickle cell anemia, here with sickle cell crisis. 1. Acute sickle cell crisis -continue IVF @150ml -transfused 1 unit PRBC yesterdaym but hgb still 6 -continue hydroxyurea, admits she forgets sometimes -pain mgt per Dr Conti -in ICU d/t requiring q3 fentanyl, give for a day or two and then begin to wean off 2. Sickle cell anemia -hgb remains in the 6s despite transfusion of 1 unit, patient refusing further transfusion till #3 is addressed -hematology following, will follow recommendations 3. Iron overload / Elevated ferritin -recurrent, from recurrent hemolysis -planned for Deferoxamine treatment per hematology, appreciate input DVT prophylaxis: SCDs PUD prophylaxis: Protonix CODE STATUS: Full code Diet: Regular Care time >35mins EBONY CONTE Sep 12, 2018 16:42
--- NOTE | 2018-09-12 16:51 | PN ---
Date/Time of Note Date/Time of Note DATE: 09/12/18 TIME: 16:42 Assessment/Plan VTE Prophylaxis Risk score (from Nsg)>0 risk: 1 Pharmacological prophylaxis: NA/contraindicated Pharm contraindication: other (severe anemia ) Lines/Catheters IV Catheter Type (from Nrsg): Peripheral IV Urinary Cath still in place: No Assessment/Plan Assessment/Plan SUBJECTIVE: looks overall better PHYSICAL EXAM: Constitutional: Young -[place] female, but no distress Psych: nl mood/affect, no complaints Head: atraumatic, normocephalic Eyes: + conjuctival pallor, mild scleral icterus ENMT: mucosa pink and moist, nl external ears & nose Neck: non-tender, supple Respiratory: clear to auscultation, normal air movement Cardiovascular: nl pulses, regular rate and rhythm Gastrointestinal: non-tender, soft, bowel sounds active in all 4 quadrants. Musculoskeletal/extremities: nl extremities to inspection, motor strength equal bilaterally, no focal deficit. Normal pulses,no cyanosis, no edema. Neurological: Alert oriented 3,nl speech, nl strength Skin: nl turgor ASSESSMENT/PLAN: 27-year-old female with history of sickle cell anemia, here with sickle cell crisis. 1. Acute sickle cell crisis -reduce fluid to 125/hr -no transfusion for now d/t iron overload -non very compliant with home hydroxyurea, has refused a few times here -pain mgt per Dr Conti -in ICU d/t requiring q3 fentanyl, plan is to down grade to [place] today after which patient can be transffered to tele -tele because of severe anemia for which we can't transfuse yet 08/31 #3 2. Sickle cell anemia -hgb remains in the 6s despite transfusion of 1 unit, patient refusing further transfusion till #3 is addressed -hematology following, will follow recommendations 3. Iron overload / Elevated ferritin -recurrent, from recurrent hemolysis -planned for Deferoxamine treatment, pharmacy is still trying to source this medication, will continue to f/u DVT prophylaxis: SCDs PUD prophylaxis: Protonix CODE STATUS: Full code Diet: Regular Care time from speaking with multiple people >40mins Result Diagram: 09/11/18 0510 09/11/18 0510 Exam/Review of Systems Exam Vitals Vital Signs Date Temp Pulse Resp B/P (MAP) Pulse Ox O2 O2 Flow FiO2 Time Delivery Rate 09/12/18 65 16:00 09/12/18 13 109/76 99 Nasal 2.0 15:00 (87) Cannula 09/12/18 98.0 07:00 09/12/18 28 05:12 Intake and Output 09/11/18 09/11/18 09/12/18 1515:00 23:00 07:00 IntakeIntake Total 1904.65 ml 2355 ml 2080 ml OutputOutput Total 600 ml 500 ml 1450 ml BalanceBalance 1304.65 ml 1855 ml 630 ml Medications Medication Current Medications Sodium Chloride 1,000 ml @ 150 mls/hr Q6H40M IV Last administered on 09/12/18at 13:09; Admin Dose 150 MLS/HR; Start 09/10/18 at 13:00 IV Flush (NS 3 ml) 3 ml PER PROTOCOL IV ; Start 09/10/18 at 12:00 Ondansetron HCl (Zofran Inj) 4 mg Q6H PRN IV NAUSEA/VOMITING; Start 09/10/18 at 12:00 Acetaminophen (Tylenol Tab) 650 mg Q6H PRN PO .PAIN 1-3 OR TEMP; Start 09/10/18 at 12:00 Docusate Sodium (Colace) 100 mg Q12H PRN PO .CONSTIPATION; Start 09/10/18 at 12:00 Famotidine (Pepcid) 20 mg Q12 PO Last administered on 09/12/18at 08:29; Admin Dose 20 MG; Start 09/10/18 at 21:00 Enoxaparin Sodium (Lovenox) 40 mg DAILY SC Last administered on 09/12/18at 08:33; Admin Dose 40 MG; Start 09/10/18 at 12:30 Hydroxyurea (Hydrea) 500 mg DAILY PO Last administered on 09/12/18at 09:45; Admin Dose 500 MG; Start 09/11/18 at 09:00 Ketorolac Tromethamine (Toradol) 30 mg Q6H PRN IV PAIN Last administered on 09/12/18at 06:35; Admin Dose 30 MG; Start 09/11/18 at 16:30; Stop 09/14/18 at 16:29 Acetaminophen/ Hydrocodone Bitart ([place] (10/325)) 2 tab Q4H PRN PO MODERATE PAIN LEVEL 4-6 Last administered on 09/12/18at 12:33; Admin Dose 2 TAB; Start 09/12/18 at 11:00 Diphenhydramine HCl (Benadryl) 50 mg Q6H PRN IV AGITATION/ANXIETY Last administered on 09/12/18at 14:45; Admin Dose 50 MG; Start 09/12/18 at 11:00 Deferoxamine Mesylate 2500 mg/ Sodium Chloride 500 ml @ 60 mls/hr Q24H IV ; Start 09/12/18 at 17:00; Stop 09/17/18 at 01:19 EBONY CNOTE Sep 12, 2018 16:51
[2018-09-12] MEDS: SOD CHLORIDE 0.9% IV SCH (17:06)
[2018-09-12] MEDS: DEFEROXAMINE IV SCH (17:06)
[2018-09-12] MEDS: DOCUSATE SODIUM 100 MG CAP PO PRN (23:40)
[2018-09-13] VITALS (11 sets, daily range): BP systolic 94–108; BP diastolic 55–68; PULSE 69–110; RESP 16–18
[2018-09-13] MEDS: KETOROLAC 30 MG INJ IV PRN ×3 (02:24→16:09)
[2018-09-13] MEDS: SOD CHLORIDE 0.9% 1,000 ML IV SCH ×3 (02:24→18:20)
[2018-09-13] MEDS ORDERED: HYDROCORTISONE 2.5% 28.35 GM OINT TOP PRN (03:00)
[2018-09-13] MEDS: HYDROCODONE/APAP (10/325) TAB PO PRN ×3 (06:00→23:33)
[2018-09-13] MEDS ORDERED: SOD CHLORIDE 0.9% 250 ML IV* ONE (08:38)
[2018-09-13] MEDS: HYDROXYUREA 500 MG CAP PO SCH (08:47)
[2018-09-13] MEDS: CEPASTAT LOZENGE MT PRN (08:48)
[2018-09-13] MEDS: FAMOTIDINE 20 MG TAB PO SCH ×2 (08:48→21:13)
--- NOTE | 2018-09-13 12:41 | CONS ---
Assessment/Plan Assessment/Plan Assessment/Plan (Daily) #Sickle Cell Crisis #iron over load -pt's Hg has dropped to 5.4 which is certainly lower than her baseline of 7-8. -Patient agreed for blood transfusion; Earlier patient states that she does not want to accept blood transfusion unless she get an iron chelator given her iron overload. - 1 unit PRBC transfusion per PMD today -will start Deferoxamine 2600mg IV q day s 5 - 7 days IV. ferritin is currently > 3000 -once she has started the iron chelation we can transfuse 2 units of PRBCS. -continue fentanyl and Toradol per pain management Patient is seen in collaboration with Dr Jang Consultation Date/Type/Reason Admit Date/Time Sep 10, 2018 at 7:21 am Initial Consult Date 09/11/18 Type of Consult oncology Reason for Consultation Sickle Cell Anemia Requesting Provider: EBONY CONTE Date/Time of Note DATE: 09/13/18 TIME: 12:36 24 HR Interval Summary Free Text/Dictation - c/o generalized pain; effective pain control - c/o upset stomach - marina order Protonix po -Patient agreed for blood transfusion; will get 1 unit PRBC transfusion per PMD today - no new issues reported last nigh per staff Constitutional: requiring IVF Detailed Summary Eyes: no complaints ENT: no complaints Respiratory: no complaints Cardiovascular: no complaints Gastrointestinal: other (heart burn) Genitourinary: no complaints Musculoskeletal: other Skin: no complaints Neurologic: no complaints Endocrine: no complaints Psychological: nl mood/affect Immunologic: no complaints Exam/Review of Systems Exam Vitals Vital Signs Date Temp Pulse Resp B/P (MAP) Pulse Ox O2 O2 Flow FiO2 Time Delivery Rate 09/13/18 Nasal 2.0 11:07 Cannula 09/13/18 98.2 71 18 104/68 98 11:00 (80) 09/12/18 28 05:12 Intake and Output 09/12/18 09/12/18 09/13/18 1515:00 23:00 07:00 IntakeIntake Total 1520 ml 1020 ml 1700 ml OutputOutput Total 700 ml 650 ml BalanceBalance 820 ml 370 ml 1700 ml Constitutional: alert, oriented, well developed Psych: nl mood/affect Eyes: EOMI, nl lids, nl sclera ENMT: nl external ears & nose Neck: non-tender Respiratory: clear to auscultation (bilaterally) Cardiovascular: nl pulses Gastrointestinal: soft, non-tender Musculoskeletal: nl extremities to inspection Extremities: normal pulses Neurological: nl mental status, nl speech Lymph: nontender Results Result Diagram: 09/13/18 0631 09/13/18 0631 Results 24hrs Laboratory Tests Test 09/13/18 06:31 White Blood Count 5.6 # Red Blood Count 1.82 L Hemoglobin 5.4 *L Hematocrit 15.9 L Mean Corpuscular Volume 87.4 Mean Corpuscular Hemoglobin 29.7 Mean Corpuscular Hemoglobin Concent 34.0 Red Cell Distribution Width 21.9 H Platelet Count 372 Mean Platelet Volume 9.6 Immature Granulocytes % 0.200 Neutrophils % 36.2 L Segmented Neutrophils % (Manual) 42 Lymphocytes % 48.5 Lymphocytes % (Manual) 46 Monocytes % 7.0 Monocytes % (Manual) 4 Eosinophils % 7.2 H Eosinophils % (Manual) 6 Basophils % 0.9 Basophils % (Manual) 2 Nucleated Red Blood Cells % 3 H Immature Granulocytes # 0.010 Neutrophils # 2.0 Lymphocytes (Manual) 2.5 Lymphocytes # 2.7 Monocytes # 0.4 Monocytes # (Manual) 0.2 L Eosinophils # 0.4 Basophils # 0.1 Basophils # (Manual) 0.1 H Nucleated Red Blood Cells # 0.2 H Platelet Estimate NORMAL Giant Platelets 3 H Polychromasia 3+ Hypochromasia 1+ Poikilocytosis 3+ Anisocytosis 2+ Microcytosis 1+ Macrocytosis 2+ Sickle Cells 1+ Sodium Level 141 Potassium Level 3.7 Chloride Level 111 H Carbon Dioxide Level 25 Anion Gap 5 Blood Urea Nitrogen 6 L Creatinine 0.40 L Est Glomerular Filtrat Rate mL/min > 60 Glucose Level 100 Calcium Level 8.2 L Magnesium Level 1.8 Total Bilirubin 1.6 H Direct Bilirubin 0.00 Indirect Bilirubin 1.6 H Aspartate Amino Transf (AST/SGOT) 33 Alanine Aminotransferase (ALT/SGPT) 26 Alkaline Phosphatase 39 L Total Protein 5.9 L Albumin 3.2 L Globulin 2.70 Albumin/Globulin Ratio 1.18 Medications Medication Current Medications Sodium Chloride 1,000 ml @ 150 mls/hr Q6H40M IV Last administered on 09/13/18at 09:14; Admin Dose 150 MLS/HR; Start 09/10/18 at 13:00 IV Flush (NS 3 ml) 3 ml PER PROTOCOL IV ; Start 09/10/18 at 12:00 Ondansetron HCl (Zofran Inj) 4 mg Q6H PRN IV NAUSEA/VOMITING; Start 09/10/18 at 12:00 Acetaminophen (Tylenol Tab) 650 mg Q6H PRN PO .PAIN 1-3 OR TEMP; Start 09/10/18 at 12:00 Docusate Sodium (Colace) 100 mg Q12H PRN PO .CONSTIPATION Last administered on 09/12/18 23:40; Admin Dose 100 MG; Start 09/10/18 at 12:00 Famotidine (Pepcid) 20 mg Q12 PO Last administered on 09/13/18 08:48; Admin Dose 20 MG; Start 09/10/18 at 21:00 Hydroxyurea (Hydrea) 500 mg DAILY PO Last administered on 09/13/18 08:47; Admin Dose 500 MG; Start 09/11/18 at 09:00 Ketorolac Tromethamine (Toradol) 30 mg Q6H PRN IV PAIN Last administered on 09/13/18 10:57; Admin Dose 30 MG; Start 09/11/18 at 16:30; Stop 09/14/18 at 16:29 Acetaminophen/ Hydrocodone Bitart ([place] (10/325)) 2 tab Q4H PRN PO MODERATE PAIN LEVEL 4-6 Last administered on 09/13/18 06:00; Admin Dose 2 TAB; Start at 11:00 Diphenhydramine HCl (Benadryl) 50 mg Q6H PRN IV AGITATION/ANXIETY Last administered on 09/12/18 23:25; Admin Dose 50 MG; Start 09/12/18 at 11:00 Deferoxamine Mesylate 2500 mg/ Sodium Chloride 500 ml @ 60 mls/hr Q24H IV Last administered on 09/12/18 17:06; Admin Dose 60 MLS/HR; Start 09/12/18 at 17:00; Stop 09/17/18 at 01:19 Hydrocortisone (Hydrocortisone 2.5% Oint) 1 applic BID PRN TOP ITCHING Last administered on 09/13/18at 04:35; Admin Dose 1 APPLIC; Start 09/13/18 at 03:00 Miscellaneous Information Patients own medicat... BID@10,16 XX ; Start 09/13/18 at 10:00 Phenol (Cepastat Lozenge) 1 lozenge Q1H PRN MT SORE THROAT Last administered on 09/13/18at 08:48; Admin Dose 1 LOZENGE; Start 09/13/18 at 06:30 Pantoprazole (Protonix Tab) 40 mg DAILY@06 PO ; Start 09/13/18 at 12:00 JH ALAN Sep 13, 2018 12:41 pm
--- NOTE | 2018-09-13 14:24 | PN ---
Date/Time of Note Date/Time of Note DATE: 09/13/18 TIME: 14:23 Assessment/Plan VTE Prophylaxis Risk score (from Ns)>0 risk: 1 SCD applied (from Ns): No SCD contraindicated: patient refusal Pharmacological prophylaxis: NA/contraindicated Pharm contraindication: anticoag not tolerated Lines/Catheters IV C[facility] Type (from [facility]): Peripheral IV Urinary Cath still in place: No Assessment/Plan Hospital Course SUBJECTIVE: Continues to complain of b/l extremity pain. OBJECTIVE: Physical Exam General: Adequately build 27 year-old female lying in bed in no apparent distress. HEENT: Normocephalic, atraumatic. Eyes: Anicteric sclerae, conjunctivae clear. ENT: Nasal septum midline, oral mucosa moist. Neck supple, no JVD noticed. Respiratory: Bilaterally clear breath sounds. No use of accessory muscles of respiration. No adventitious breath sounds. Cardiovascular: S1, S2 heard. Regular rate and rhythm. Abdomen: Soft, nontender, and nondistended. Bowel sounds positive in all 4 quadrants. Genitourinary: Deferred. Extremities: No cyanosis, no clubbing, no edema. Peripheral pulses palpable. Neurologic: Cranial nerves II through XII grossly intact. The patient is awake, alert, and oriented. Skin: Normal skin turgor. No skin rashes. Labs & Vitals per chart ASSESSMENT & PLAN 27-year-old -Faro[place] female with past medical history of sickle cell anemia who came to the emergency room with chief complaint of severe lower extremity pain. The patient was found to be in sickle crisis. 1. Sickle cell crisis -Continue IV fluids -Continue pain control. Pain management following the patient. 2. Sickle cell anemia. -Blood transfusion after iron chelation. 3. Iron overload. -On deferoxamine. -Being followed by hematology. 4. Fluids, electrolytes, and nutrition. -Regular diet. 5. DVT prophylaxis -Contraindicated. 6. Plan. -Continue pain control. -Continue IV hydration. -Transfuse blood products after iron chelation. The patient was seen in collaboration with Dr. Ramos. Result Diagram: 09/13/18 0631 09/13/18 0631 Results 24hrs Laboratory Tests Test 09/13/18 06:31 09/13/18 13:41 White Blood Count 5.6 # Red Blood Count 1.82 L Hemoglobin 5.4 *L Hematocrit 15.9 L Mean Corpuscular Volume 87.4 Mean Corpuscular Hemoglobin 29.7 Mean Corpuscular Hemoglobin Concent 34.0 Red Cell Distribution Width 21.9 H Platelet Count 372 Mean Platelet Volume 9.6 Immature Granulocytes % 0.200 Neutrophils % 36.2 L Segmented Neutrophils % (Manual) 42 Lymphocytes % 48.5 Lymphocytes % (Manual) 46 Monocytes % 7.0 Monocytes % (Manual) 4 Eosinophils % 7.2 H Eosinophils % (Manual) 6 Basophils % 0.9 Basophils % (Manual) 2 Nucleated Red Blood Cells % 3 H Immature Granulocytes # 0.010 Neutrophils # 2.0 Lymphocytes (Manual) 2.5 Lymphocytes # 2.7 Monocytes # 0.4 Monocytes # (Manual) 0.2 L Eosinophils # 0.4 Basophils # 0.1 Basophils # (Manual) 0.1 H Nucleated Red Blood Cells # 0.2 H Platelet Estimate NORMAL Giant Platelets 3 H Polychromasia 3+ Hypochromasia 1+ Poikilocytosis 3+ Anisocytosis 2+ Microcytosis 1+ Macrocytosis 2+ Sickle Cells 1+ Sodium Level 141 Potassium Level 3.7 Chloride Level 111 H Carbon Dioxide Level 25 Anion Gap 5 Blood Urea Nitrogen 6 L Creatinine 0.40 L Est Glomerular Filtrat Rate mL/min > 60 Glucose Level 100 Calcium Level 8.2 L Magnesium Level 1.8 Total Bilirubin 1.6 H Direct Bilirubin 0.00 Indirect Bilirubin 1.6 H Aspartate Amino Transf (AST/SGOT) 33 Alanine Aminotransferase (ALT/SGPT) 26 Alkaline Phosphatase 39 L Total Protein 5.9 L Albumin 3.2 L Globulin 2.70 Albumin/Globulin Ratio 1.18 Lab Scanned Report BLOOD TRANSFUSION Exam/Review of Systems Exam Vitals Vital Signs Date Temp Pulse Resp B/P (MAP) Pulse Ox O2 O2 Flow FiO2 Time Delivery Rate 09/13/18 95 13:03 09/13/18 Nasal 2.0 11:07 Cannula 09/13/18 98.2 18 104/68 98 11:00 (80) 09/12/18 28 05:12 Intake and Output 09/12/18 09/12/18 09/13/18 1515:00 23:00 07:00 IntakeIntake Total 1520 ml 1020 ml 1700 ml OutputOutput Total 700 ml 650 ml BalanceBalance 820 ml 370 ml 1700 ml Results Results 24hrs Laboratory Tests Test 09/13/18 06:31 09/13/18 13:41 White Blood Count 5.6 # Red Blood Count 1.82 L Hemoglobin 5.4 *L Hematocrit 15.9 L Mean Corpuscular Volume 87.4 Mean Corpuscular Hemoglobin 29.7 Mean Corpuscular Hemoglobin Concent 34.0 Red Cell Distribution Width 21.9 H Platelet Count 372 Mean Platelet Volume 9.6 Immature Granulocytes % 0.200 Neutrophils % 36.2 L Segmented Neutrophils % (Manual) 42 Lymphocytes % 48.5 Lymphocytes % (Manual) 46 Monocytes % 7.0 Monocytes % (Manual) 4 Eosinophils % 7.2 H Eosinophils % (Manual) 6 Basophils % 0.9 Basophils % (Manual) 2 Nucleated Red Blood Cells % 3 H Immature Granulocytes # 0.010 Neutrophils # 2.0 Lymphocytes (Manual) 2.5 Lymphocytes # 2.7 Monocytes # 0.4 Monocytes # (Manual) 0.2 L Eosinophils # 0.4 Basophils # 0.1 Basophils # (Manual) 0.1 H Nucleated Red Blood Cells # 0.2 H Platelet Estimate NORMAL Giant Platelets 3 H Polychromasia 3+ Hypochromasia 1+ Poikilocytosis 3+ Anisocytosis 2+ Microcytosis 1+ Macrocytosis 2+ Sickle Cells 1+ Sodium Level 141 Potassium Level 3.7 Chloride Level 111 H Carbon Dioxide Level 25 Anion Gap 5 Blood Urea Nitrogen 6 L Creatinine 0.40 L Est Glomerular Filtrat Rate mL/min > 60 Glucose Level 100 Calcium Level 8.2 L Magnesium Level 1.8 Total Bilirubin 1.6 H Direct Bilirubin 0.00 Indirect Bilirubin 1.6 H Aspartate Amino Transf (AST/SGOT) 33 Alanine Aminotransferase (ALT/SGPT) 26 Alkaline Phosphatase 39 L Total Protein 5.9 L Albumin 3.2 L Globulin 2.70 Albumin/Globulin Ratio 1.18 Lab Scanned Report BLOOD TRANSFUSION Medications Medication Current Medications Sodium Chloride 1,000 ml @ 150 mls/hr Q6H40M IV Last administered on 09/13/18at 09:14; Admin Dose 150 MLS/HR; Start 09/10/18 at 13:00 IV Flush (NS 3 ml) 3 ml PER PROTOCOL IV ; Start 09/10/18 at 12:00 Ondansetron HCl (Zofran Inj) 4 mg Q6H PRN IV NAUSEA/VOMITING; Start 09/10/18 at 12:00 Acetaminophen (Tylenol Tab) 650 mg Q6H PRN PO .PAIN 1-3 OR TEMP; Start 09/10/18 at 12:00 Docusate Sodium (Colace) 100 mg Q12H PRN PO .CONSTIPATION Last administered on 09/12/18 23:40; Admin Dose 100 MG; Start 09/10/18 at 12:00 Famotidine (Pepcid) 20 mg Q12 PO Last administered on 09/13/18 08:48; Admin Dose 20 MG; Start 09/10/18 at 21:00 Hydroxyurea (Hydrea) 500 mg DAILY PO Last administered on 09/13/18 08:47; Admin Dose 500 MG; Start 09/11/18 at 09:00 Ketorolac Tromethamine (Toradol) 30 mg Q6H PRN IV PAIN Last administered on 09/13/18 10:57; Admin Dose 30 MG; Start 09/11/18 at 16:30; Stop 09/14/18 at 16:29 Acetaminophen/ Hydrocodone Bitart ([place] (10/325)) 2 tab Q4H PRN PO MODERATE PAIN LEVEL 4-6 Last administered on 09/13/18 06:00; Admin Dose 2 TAB; Start 09/12/18 at 11:00 Diphenhydramine HCl (Benadryl) 50 mg Q6H PRN IV AGITATION/ANXIETY Last administered on 09/12/18 23:25; Admin Dose 50 MG; Start 09/12/18 at 11:00 Deferoxamine Mesylate 2500 mg/ Sodium Chloride 500 ml @ 60 mls/hr Q24H IV Last administered on 09/12/18 17:06; Admin Dose 60 MLS/HR; Start 09/12/18 at 17:00; Stop 09/17/18 at 01:19 Hydrocortisone (Hydrocortisone 2.5% Oint) 1 applic BID PRN TOP ITCHING Last administered on 09/13/18 04:35; Admin Dose 1 APPLIC; Start 09/13/18 at 03:00 Miscellaneous Information Patients own medicat... BID@10,16 XX ; Start 09/13/18 at 10:00 Phenol (Cepastat Lozenge) 1 lozenge Q1H PRN MT SORE THROAT Last administered on 09/13/18 08:48; Admin Dose 1 LOZENGE; Start 09/13/18 at 06:30 Pantoprazole (Protonix Tab) 40 mg DAILY@06 PO ; Start 09/13/18 at 12:00 MYRNA VELASQUEZ NP Sep 13, 2018 14:24
[2018-09-13] MEDS: BISACODYL (EC) 5 MG TAB PO PRN (16:10)
[2018-09-13] MEDS: PANTOPRAZOLE (EC) 40 MG TAB PO SCH (16:13)
[2018-09-13] MEDS: SOD CHLORIDE 0.9% IV SCH (18:00)
[2018-09-13] MEDS: DEFEROXAMINE IV SCH (18:00)
[2018-09-13] MEDS: POLYETHYLENE GLYCOL 17 GM PACKET PO SCH (21:00)
[2018-09-14] VITALS (11 sets, daily range): BP systolic 90–109; BP diastolic 48–79; PULSE 69–95; RESP 16–19
[2018-09-14] MEDS: SOD CHLORIDE 0.9% 1,000 ML IV SCH ×4 (01:02→21:00)
[2018-09-14] MEDS: KETOROLAC 30 MG INJ IV PRN ×2 (02:28→11:25)
[2018-09-14] MEDS: PANTOPRAZOLE (EC) 40 MG TAB PO SCH (06:12)
[2018-09-14] MEDS: FAMOTIDINE 20 MG TAB PO SCH ×2 (08:46→21:19)
[2018-09-14] MEDS: POLYETHYLENE GLYCOL 17 GM PACKET PO SCH ×2 (08:46→21:19)
[2018-09-14] MEDS: HYDROXYUREA 500 MG CAP PO SCH (08:49)
--- NOTE | 2018-09-14 11:59 | PN ---
Date/Time of Note Date/Time of Note DATE: 09/14/18 TIME: 11:50 Assessment/Plan VTE Prophylaxis Risk score (from Nsg)>0 risk: 1 SCD applied (from Nsg): Yes Pharmacological prophylaxis: NA/contraindicated Pharm contraindication: other (Anemia) Lines/Catheters IV Catheter Type (from Nrsg): Peripheral IV Urinary Cath still in place: No Assessment/Plan Hospital Course SUBJECTIVE: Patient received 1 unit PRBC transfusion yesterday. Seen by [facility] on team yesterday. OBJECTIVE: Physical Exam General: lying in bed in no apparent distress. HEENT: Normocephalic, atraumatic. Eyes: Anicteric sclerae, conjunctivae clear. ENT: Nasal septum midline, oral mucosa moist. Neck supple, no JVD noticed. Respiratory: Bilaterally clear breath sounds. No use of accessory muscles of respiration. Cardiovascular: S1, S2 heard. Regular rate and rhythm. Abdomen: Soft, nontender, and nondistended. Bowel sounds positive in all 4 quadrants. Extremities: No cyanosis, no clubbing, no edema. Peripheral pulses palpable. Neurologic: Cranial nerves II through XII grossly intact. The patient is awake, alert, and oriented. ASSESSMENT & PLAN : 27-year-old -Serbian female with past medical history of sickle cell anemia who came to the emergency room with chief complaint of severe lower extremity pain. The patient was found to be in sickle crisis. 1. Sickle cell anemia/Sickle cell crisis -slowly improving -Continue IV fluids -Continue pain control. Pain management following the patient. -PRN blood transfusions per hematology recommendations after iron chelation. 3. Iron overload-On deferoxamine-Being followed by hematology. -Continue deferoxamine per [facility] on recommendations 4. Fluids, electrolytes, and nutrition. -Regular diet. 5. DVT prophylaxis -Contraindicated at this time Result Diagram: 09/14/18 0709 09/14/18 0709 Results 24hrs Laboratory Tests Test 09/13/18 13:41 09/14/18 07:09 Lab Scanned Report BLOOD TRANSFUSION White Blood Count 5.7 Red Blood Count 2.01 L Hemoglobin 6.0 *L Hematocrit 17.2 L Mean Corpuscular Volume 85.6 Mean Corpuscular Hemoglobin 29.9 Mean Corpuscular Hemoglobin Concent 34.9 Red Cell Distribution Width 20.7 H Platelet Count 356 Mean Platelet Volume 9.5 Immature Granulocytes % 0.400 Neutrophils % Segmented Neutrophils % (Manual) 47 Band Neutrophils % (Manual) 3 Lymphocytes % Lymphocytes % (Manual) 35 Reactive Lymphocytes % (Manual) 1 H Monocytes % Monocytes % (Manual) 5 Eosinophils % Eosinophils % (Manual) 5 Basophils % Basophils % (Manual) 4 H Nucleated Red Blood Cells % 2 H Immature Granulocytes # 0.020 Neutrophils # Neutrophils # (Manual) 2.7 Band Neutrophils # 0.1 Lymphocytes (Manual) 1.9 Lymphocytes # Reactive Lymphocytes # 0.0 Monocytes # Monocytes # (Manual) 0.2 L Eosinophils # Basophils # Basophils # (Manual) 0.2 H Nucleated Red Blood Cells # Platelet Estimate NORMAL Giant Platelets 2 H Polychromasia 3+ Hypochromasia 1+ Poikilocytosis 1+ Anisocytosis 2+ Microcytosis 2+ Sodium Level 142 Potassium Level 4.0 Chloride Level 112 H Carbon Dioxide Level 25 Anion Gap 5 Blood Urea Nitrogen 9 Creatinine 0.49 Est Glomerular Filtrat Rate mL/min > 60 Glucose Level 80 Calcium Level 8.8 Total Bilirubin 1.9 H Direct Bilirubin 0.00 Indirect Bilirubin 1.9 H Aspartate Amino Transf (AST/SGOT) 42 Alanine Aminotransferase (ALT/SGPT) 36 Alkaline Phosphatase 39 L Total Protein 6.0 L Albumin 3.3 Globulin 2.70 Albumin/Globulin Ratio 1.22 Exam/Review of Systems Exam Vitals Vital Signs Date Temp Pulse Resp B/P (MAP) Pulse Ox O2 O2 Flow FiO2 Time Delivery Rate 09/14/18 2.0 08:29 09/14/18 98.7 83 16 90/48 (62) 94 08:07 09/13/18 Nasal 20:00 Cannula 09/12/18 28 05:12 Intake and Output 09/13/18 09/13/18 09/14/18 1515:00 23:00 07:00 IntakeIntake Total 750 ml 650 ml 2600 ml BalanceBalance 750 ml 650 ml 2600 ml Results Results 24hrs Laboratory Tests Test 09/13/18 13:41 09/14/18 07:09 Lab Scanned Report BLOOD TRANSFUSION White Blood Count 5.7 Red Blood Count 2.01 L Hemoglobin 6.0 *L Hematocrit 17.2 L Mean Corpuscular Volume 85.6 Mean Corpuscular Hemoglobin 29.9 Mean Corpuscular Hemoglobin Concent 34.9 Red Cell Distribution Width 20.7 H Platelet Count 356 Mean Platelet Volume 9.5 Immature Granulocytes % 0.400 Neutrophils % Segmented Neutrophils % (Manual) 47 Band Neutrophils % (Manual) 3 Lymphocytes % Lymphocytes % (Manual) 35 Reactive Lymphocytes % (Manual) 1 H Monocytes % Monocytes % (Manual) 5 Eosinophils % Eosinophils % (Manual) 5 Basophils % Basophils % (Manual) 4 H Nucleated Red Blood Cells % 2 H Immature Granulocytes # 0.020 Neutrophils # Neutrophils # (Manual) 2.7 Band Neutrophils # 0.1 Lymphocytes (Manual) 1.9 Lymphocytes # Reactive Lymphocytes # 0.0 Monocytes # Monocytes # (Manual) 0.2 L Eosinophils # Basophils # Basophils # (Manual) 0.2 H Nucleated Red Blood Cells # Platelet Estimate NORMAL Giant Platelets 2 H Polychromasia 3+ Hypochromasia 1+ Poikilocytosis 1+ Anisocytosis 2+ Microcytosis 2+ Sodium Level 142 Potassium Level 4.0 Chloride Level 112 H Carbon Dioxide Level 25 Anion Gap 5 Blood Urea Nitrogen 9 Creatinine 0.49 Est Glomerular Filtrat Rate mL/min > 60 Glucose Level 80 Calcium Level 8.8 Total Bilirubin 1.9 H Direct Bilirubin 0.00 Indirect Bilirubin 1.9 H Aspartate Amino Transf (AST/SGOT) 42 Alanine Aminotransferase (ALT/SGPT) 36 Alkaline Phosphatase 39 L Total Protein 6.0 L Albumin 3.3 Globulin 2.70 Albumin/Globulin Ratio 1.22 Medications Medication Current Medications Sodium Chloride 1,000 ml @ 150 mls/hr Q6H40M IV Last administered on 09/14/18 08:46; Admin Dose 150 MLS/HR; Start 09/10/18 at 13:00 IV Flush (NS 3 ml) 3 ml PER PROTOCOL IV ; Start 09/10/18 at 12:00 Ondansetron HCl (Zofran Inj) 4 mg Q6H PRN IV NAUSEA/VOMITING Last administered on 09/13/18 23:33; Admin Dose 4 MG; Start 09/10/18 at 12:00 Acetaminophen (Tylenol Tab) 650 mg Q6H PRN PO .PAIN 1-3 OR TEMP; Start 09/10/18 at 12:00 Docusate Sodium (Colace) 100 mg Q12H PRN PO .CONSTIPATION Last administered on 09/12/18 23:40; Admin Dose 100 MG; Start 09/10/18 at 12:00 Famotidine (Pepcid) 20 mg Q12 PO Last administered on 09/14/18 08:46; Admin Dose 20 MG; Start 09/10/18 at 21:00 Hydroxyurea (Hydrea) 500 mg DAILY PO Last administered on 09/14/18 08:49; Admin Dose 500 MG; Start 09/11/18 at 09:00 Ketorolac Tromethamine (Toradol) 30 mg Q6H PRN IV PAIN Last administered on 09/14/18 11:25; Admin Dose 30 MG; Start 09/11/18 at 16:30; Stop 09/14/18 at 16:29 Acetaminophen/ Hydrocodone Bitart ([place] ()) 2 tab Q4H PRN PO MODERATE PAIN LEVEL 4-6 Last administered on 09/13/18 23:33; Admin Dose 2 TAB; Start 09/12/18 at 11:00 Diphenhydramine HCl (Benadryl) 50 mg Q6H PRN IV AGITATION/ANXIETY Last administered on 09/12/18 23:25; Admin Dose 50 MG; Start 09/12/18 at 11:00 Deferoxamine Mesylate 2500 mg/ Sodium Chloride 500 ml @ 60 mls/hr Q24H IV Last administered on 09/13/18 18:00; Admin Dose 60 MLS/HR; Start 09/12/18 at 17:00; Stop 09/17/18 at 01:19 Hydrocortisone (Hydrocortisone 2.5% Oint) 1 applic BID PRN TOP ITCHING Last administered on 09/13/18 04:35; Admin Dose 1 APPLIC; Start 09/13/18 at 03:00 Miscellaneous Information Patients own medicat... BID@10,16 XX ; Start 09/13/18 at 10:00 Phenol (Cepastat Lozenge) 1 lozenge Q1H PRN MT SORE THROAT Last administered on 09/13/18 08:48; Admin Dose 1 LOZENGE; Start 09/13/18 at 06:30 Pantoprazole (Protonix Tab) 40 mg DAILY@06 PO Last administered on 09/14/18 06:12; Admin Dose 40 MG; Start 09/13/18 at 12:00 Polyethylene Glycol (Miralax) 17 gm BID PO Last administered on 09/14/18 08:46; Admin Dose 17 GM; Start 09/13/18 at 21:00 Bisacodyl (Dulcolax) 10 mg DAILY PRN PO CONSTIPATION Last administered on 09/13/18at 16:10; Admin Dose 10 MG; Start 09/13/18 at 15:00 FRANCISCO MORENO Sep 14, 2018 11:59
--- NOTE | 2018-09-14 17:15 | PN ---
Date/Time of Note Date/Time of Note DATE: 09/14/18 TIME: 17:11 Assessment/Plan VTE Prophylaxis Risk score (from Ns)>0 risk: 2 SCD applied (from Nsg): Yes Lines/Catheters IV Catheter Type (from Nrs): Peripheral IV Urinary Cath still in place: No Assessment/Plan Result Diagram: 09/14/18 0709 09/14/18 0709 Results 24hrs Laboratory Tests Test 09/14/18 07:09 White Blood Count 5.7 Red Blood Count 2.01 L Hemoglobin 6.0 *L Hematocrit 17.2 L Mean Corpuscular Volume 85.6 Mean Corpuscular Hemoglobin 29.9 Mean Corpuscular Hemoglobin Concent 34.9 Red Cell Distribution Width 20.7 H Platelet Count 356 Mean Platelet Volume 9.5 Immature Granulocytes % 0.400 Neutrophils % Segmented Neutrophils % (Manual) 47 Band Neutrophils % (Manual) 3 Lymphocytes % Lymphocytes % (Manual) 35 Reactive Lymphocytes % (Manual) 1 H Monocytes % Monocytes % (Manual) 5 Eosinophils % Eosinophils % (Manual) 5 Basophils % Basophils % (Manual) 4 H Nucleated Red Blood Cells % 2 H Immature Granulocytes # 0.020 Neutrophils # Neutrophils # (Manual) 2.7 Band Neutrophils # 0.1 Lymphocytes (Manual) 1.9 Lymphocytes # Reactive Lymphocytes # 0.0 Monocytes # Monocytes # (Manual) 0.2 L Eosinophils # Basophils # Basophils # (Manual) 0.2 H Nucleated Red Blood Cells # Platelet Estimate NORMAL Giant Platelets 2 H Polychromasia 3+ Hypochromasia 1+ Poikilocytosis 1+ Anisocytosis 2+ Microcytosis 2+ Sodium Level 142 Potassium Level 4.0 Chloride Level 112 H Carbon Dioxide Level 25 Anion Gap 5 Blood Urea Nitrogen 9 Creatinine 0.49 Est Glomerular Filtrat Rate mL/min > 60 Glucose Level 80 Calcium Level 8.8 Total Bilirubin 1.9 H Direct Bilirubin 0.00 Indirect Bilirubin 1.9 H Aspartate Amino Transf (AST/SGOT) 42 Alanine Aminotransferase (ALT/SGPT) 36 Alkaline Phosphatase 39 L Total Protein 6.0 L Albumin 3.3 Globulin 2.70 Albumin/Globulin Ratio 1.22 Exam/Review of Systems Exam Vitals Vital Signs Date Temp Pulse Resp B/P (MAP) Pulse Ox O2 O2 Flow FiO2 Time Delivery Rate 09/14/18 71 16:00 09/14/18 98.7 16 104/56 96 15:19 (72) 09/14/18 Nasal 2.0 09:00 Cannula 09/12/18 28 05:12 Intake and Output 09/13/18 09/13/18 09/14/18 1515:00 23:00 07:00 IntakeIntake Total 750 ml 650 ml 2600 ml BalanceBalance 750 ml 650 ml 2600 ml Results Results 24hrs Laboratory Tests Test 09/14/18 07:09 White Blood Count 5.7 Red Blood Count 2.01 L Hemoglobin 6.0 *L Hematocrit 17.2 L Mean Corpuscular Volume 85.6 Mean Corpuscular Hemoglobin 29.9 Mean Corpuscular Hemoglobin Concent 34.9 Red Cell Distribution Width 20.7 H Platelet Count 356 Mean Platelet Volume 9.5 Immature Granulocytes % 0.400 Neutrophils % Segmented Neutrophils % (Manual) 47 Band Neutrophils % (Manual) 3 Lymphocytes % Lymphocytes % (Manual) 35 Reactive Lymphocytes % (Manual) 1 H Monocytes % Monocytes % (Manual) 5 Eosinophils % Eosinophils % (Manual) 5 Basophils % Basophils % (Manual) 4 H Nucleated Red Blood Cells % 2 H Immature Granulocytes # 0.020 Neutrophils # Neutrophils # (Manual) 2.7 Band Neutrophils # 0.1 Lymphocytes (Manual) 1.9 Lymphocytes # Reactive Lymphocytes # 0.0 Monocytes # Monocytes # (Manual) 0.2 L Eosinophils # Basophils # Basophils # (Manual) 0.2 H Nucleated Red Blood Cells # Platelet Estimate NORMAL Giant Platelets 2 H Polychromasia 3+ Hypochromasia 1+ Poikilocytosis 1+ Anisocytosis 2+ Microcytosis 2+ Sodium Level 142 Potassium Level 4.0 Chloride Level 112 H Carbon Dioxide Level 25 Anion Gap 5 Blood Urea Nitrogen 9 Creatinine 0.49 Est Glomerular Filtrat Rate mL/min > 60 Glucose Level 80 Calcium Level 8.8 Total Bilirubin 1.9 H Direct Bilirubin 0.00 Indirect Bilirubin 1.9 H Aspartate Amino Transf (AST/SGOT) 42 Alanine Aminotransferase (ALT/SGPT) 36 Alkaline Phosphatase 39 L Total Protein 6.0 L Albumin 3.3 Globulin 2.70 Albumin/Globulin Ratio 1.22 Medications Medication Current Medications Sodium Chloride 1,000 ml @ 150 mls/hr Q6H40M IV Last administered on 09/14/18at 08:46; Admin Dose 150 MLS/HR; Start 09/10/18 at 13:00 IV Flush (NS 3 ml) 3 ml PER PROTOCOL IV ; Start 09/10/18 at 12:00 Ondansetron HCl (Zofran Inj) 4 mg Q6H PRN IV NAUSEA/VOMITING Last administered on 09/13/18 23:33; Admin Dose 4 MG; Start 09/10/18 at 12:00 Acetaminophen (Tylenol Tab) 650 mg Q6H PRN PO .PAIN 1-3 OR TEMP; Start 09/10/18 at 12:00 Docusate Sodium (Colace) 100 mg Q12H PRN PO .CONSTIPATION Last administered on 09/12/18 23:40; Admin Dose 100 MG; Start 09/10/18 at 12:00 Famotidine (Pepcid) 20 mg Q12 PO Last administered on 09/14/18 08:46; Admin Dose 20 MG; Start 09/10/18 at 21:00 Hydroxyurea (Hydrea) 500 mg DAILY PO Last administered on 09/14/18 08:49; Admin Dose 500 MG; Start 09/11/18 at 09:00 Acetaminophen/ Hydrocodone Bitart ([place] (10325)) 2 tab Q4H PRN PO MODERATE P AIN LEVEL 4-6 Last administered on 09/13/18 23:33; Admin Dose 2 TAB; Start 09/12/18 at 11:00 Diphenhydramine HCl (Benadryl) 50 mg Q6H PRN IV AGITATION/ANXIETY Last administered on 09/12/18 23:25; Admin Dose 50 MG; Start 09/12/18 at 11:00 Deferoxamine Mesylate 2500 mg/ Sodium Chloride 500 ml @ 60 mls/hr Q24H IV Last administered on 09/13/18 18:00; Admin Dose 60 MLS/HR; Start 09/12/18 at 17:00; Stop 09/17/18 at 01:19 Hydrocortisone (Hydrocortisone 2.5% Oint) 1 applic BID PRN TOP ITCHING Last administered on 09/13/18 04:35; Admin Dose 1 APPLIC; Start 09/13/18 at 03:00 Miscellaneous Information Patients own medicat... BID@10,16 XX ; Start 09/13/18 at 10:00 Phenol (Cepastat Lozenge) 1 lozenge Q1H PRN MT SORE THROAT Last administered on 09/13/18 08:48; Admin Dose 1 LOZENGE; Start 09/13/18 at 06:30 Pantoprazole (Protonix Tab) 40 mg DAILY@06 PO Last administered on 09/14/18 06:12; Admin Dose 40 MG; Start 09/13/18 at 12:00 Polyethylene Glycol (Miralax) 17 gm BID PO Last administered on 09/14/18 08:46; Admin Dose 17 GM; Start 09/13/18 at 21:00 Bisacodyl (Dulcolax) 10 mg DAILY PRN PO CONSTIPATION Last administered on 09/13/18 16:10; Admin Dose 10 MG; Start 09/13/18 at 15:00 JH ALAN Sep 14, 2018 17:15
[2018-09-14] MEDS: BISACODYL (EC) 5 MG TAB PO PRN (19:28)
[2018-09-14] MEDS: DOCUSATE SODIUM 100 MG CAP PO PRN (19:28)
[2018-09-14] MEDS: HYDROCODONE/APAP (10/325) TAB PO PRN (19:28)
[2018-09-14] MEDS: DEFEROXAMINE IV SCH (19:29)
[2018-09-14] MEDS: SOD CHLORIDE 0.9% IV SCH (19:29)
[2018-09-14] MEDS ORDERED: KETOROLAC 30 MG INJ IV ONE (20:52)
[2018-09-15] VITALS (11 sets, daily range): BP systolic 96–180; BP diastolic 54–76; PULSE 67–109; RESP 17–19
[2018-09-15] MEDS ORDERED: MAGNESIUM CITRATE 300 ML BTL PO ONE (03:00)
[2018-09-15] MEDS: PANTOPRAZOLE (EC) 40 MG TAB PO SCH (06:34)
[2018-09-15] MEDS: SOD CHLORIDE 0.9% 1,000 ML IV SCH ×4 (06:34→19:36)
[2018-09-15] MEDS: DOCUSATE SODIUM 100 MG CAP PO PRN (08:34)
[2018-09-15] MEDS: POLYETHYLENE GLYCOL 17 GM PACKET PO SCH ×2 (08:34→21:00)
[2018-09-15] MEDS: FAMOTIDINE 20 MG TAB PO SCH ×2 (08:34→21:20)
[2018-09-15] MEDS: HYDROXYUREA 500 MG CAP PO SCH (08:39)
[2018-09-15] MEDS ORDERED: DIPHENHYDRAMINE 50 MG INJ IV PRN (12:00)
[2018-09-15] MEDS ORDERED: NA PHOSPHATE/BIPHOS 133 ML ENEMA PR PRN (12:00)
--- NOTE | 2018-09-15 12:00 | PN ---
Date/Time of Note Date/Time of Note DATE: 09/15/18 TIME: 11:55 Assessment/Plan VTE Prophylaxis Risk score (from Ns)>0 risk: 1 SCD applied (from Ns): Yes SCD contraindicated: other Pharmacological prophylaxis: NA/contraindicated Pharm contraindication: low risk/ambulating, other (Anemia) Lines/Catheters IV Catheter Type (from [facility]): Peripheral IV Urinary Cath still in place: No Assessment/Plan Hospital Course SUBJECTIVE: Patient asking for renewal of her pain medications and enema. No other events overnight. OBJECTIVE: Physical Exam General: lying in bed in no apparent distress. HEENT: Normocephalic, atraumatic. Eyes: Anicteric sclerae, conjunctivae clear. ENT: Nasal septum midline, oral mucosa moist. Neck supple, no JVD noticed. Respiratory: Bilaterally clear breath sounds. No use of accessory muscles of respiration. Cardiovascular: S1, S2 heard. Regular rate and rhythm. Abdomen: Soft, nontender, and nondistended. Bowel sounds positive in all 4 quadrants. Extremities: No cyanosis, no clubbing, no edema. Peripheral pulses palpable. Neurologic: Cranial nerves II through XII grossly intact. The patient is awake, alert, and oriented. ASSESSMENT & PLAN : 27-year-old -[place] female with past medical history of sickle cell anemia who came to the emergency room with chief complaint of severe lower extremity pain. The patient was found to be in sickle crisis. 1. Sickle cell anemia/Sickle cell crisis -slowly improving -Continue IV fluids -Continue pain control. Pain management following the patient. -PRN blood transfusions per hematology recommendations after iron chelation. 3. Iron overload-On deferoxamine-Being followed by hematology. -Continue deferoxamine per heme on recommendations 4. Fluids, electrolytes, and nutrition. -Regular diet. 5. DVT prophylaxis -Contraindicated at this time, patient also ambulating Result Diagram: 09/15/18 0533 09/14/18 0709 Results 24hrs Laboratory Tests Test 09/15/18 05:33 White Blood Count 5.8 Red Blood Count 2.04 L Hemoglobin 6.0 *L Hematocrit 17.8 L Mean Corpuscular Volume 87.3 Mean Corpuscular Hemoglobin 29.4 Mean Corpuscular Hemoglobin Concent 33.7 Red Cell Distribution Width 21.7 H Platelet Count 360 Mean Platelet Volume 9.3 Immature Granulocytes % 0.300 Neutrophils % 50.5 Lymphocytes % 35.9 Monocytes % 6.6 Eosinophils % 5.5 Basophils % 1.2 Nucleated Red Blood Cells % 4.0 H Immature Granulocytes # 0.020 Neutrophils # 2.9 Lymphocytes # 2.1 Monocytes # 0.4 Eosinophils # 0.3 Basophils # 0.1 Nucleated Red Blood Cells # 0.2 H Exam/Review of Systems Exam Vitals Vital Signs Date Temp Pulse Resp B/P (MAP) Pulse Ox O2 O2 Flow FiO2 Time Delivery Rate 09/15/18 11:23 09/15/18 2.0 08:45 09/15/18 28 04:19 Intake and Output 09/14/18 09/14/18 09/15/18 1515:00 23:00 07:00 IntakeIntake Total 2050 ml BalanceBalance 2050 ml Results Results 24hrs Laboratory Tests Test 09/15/18 05:33 White Blood Count 5.8 Red Blood Count 2.04 L Hemoglobin 6.0 *L Hematocrit 17.8 L Mean Corpuscular Volume 87.3 Mean Corpuscular Hemoglobin 29.4 Mean Corpuscular Hemoglobin Concent 33.7 Red Cell Distribution Width 21.7 H Platelet Count 360 Mean Platelet Volume 9.3 Immature Granulocytes % 0.300 Neutrophils % 50.5 Lymphocytes % 35.9 Monocytes % 6.6 Eosinophils % 5.5 Basophils % 1.2 Nucleated Red Blood Cells % 4.0 H Immature Granulocytes # 0.020 Neutrophils # 2.9 Lymphocytes # 2.1 Monocytes # 0.4 Eosinophils # 0.3 Basophils # 0.1 Nucleated Red Blood Cells # 0.2 H Medications Medication Current Medications Sodium Chloride 1,000 ml @ 150 mls/hr Q6H40M IV Last administered on 09/15/18at 11:55; Admin Dose 150 MLS/HR; Start 09/10/18 at 13:00 IV Flush (NS 3 ml) 3 ml PER PROTOCOL IV ; Start 09/10/18 at 12:00 Ondansetron HCl (Zofran Inj) 4 mg Q6H PRN IV NAUSEA/VOMITING Last administered on 09/13/18at 23:33; Admin Dose 4 MG; Start 09/10/18 at 12:00 Acetaminophen (Tylenol Tab) 650 mg Q6H PRN PO .PAIN 1-3 OR TEMP; Start 09/10/18 at 12:00 Docusate Sodium (Colace) 100 mg Q12H PRN PO .CONSTIPATION Last administered on 09/15/18 08:34; Admin Dose 100 MG; Start 09/10/18 at 12:00 Famotidine (Pepcid) 20 mg Q12 PO Last administered on 09/15/18 08:34; Admin Dose 20 MG; Start 09/10/18 at 21:00 Hydroxyurea (Hydrea) 500 mg DAILY PO Last administered on 09/15/18 08:39; Admin Dose 500 MG; Start 09/11/18 at 09:00 Acetaminophen/ Hydrocodone Bitart ([place] ()) 2 tab Q4H PRN PO MODERATE PAIN LEVEL 4-6 Last administered on 09/14/18 19:28; Admin Dose 2 TAB; Start 09/12/18 at 11:00 Diphenhydramine HCl (Benadryl) 50 mg Q6H PRN IV AGITATION/ANXIETY Last administered on 09/12/18 23:25; Admin Dose 50 MG; Start 09/12/18 at 11:00 Deferoxamine Mesylate 2500 mg/ Sodium Chloride 500 ml @ 60 mls/hr Q24H IV Last administered on 09/14/18 19:29; Admin Dose 60 MLS/HR; Start 09/12/18 at 17:00; Stop 09/17/18 at 01:19 Hydrocortisone (Hydrocortisone 2.5% Oint) 1 applic BID PRN TOP ITCHING Last administered on 09/13/18 04:35; Admin Dose 1 APPLIC; Start 09/13/18 at 03:00 Miscellaneous Information Patients own medicat... BID@10,16 XX ; Start 09/13/18 at 10:00 Phenol (Cepastat Lozenge) 1 lozenge Q1H PRN [place] SORE THROAT Last administered on 09/13/18 08:48; Admin Dose 1 LOZENGE; Start 09/13/18 at 06:30 Pantoprazole (Protonix Tab) 40 mg DAILY@06 PO Last administered on 09/15/18 06:34; Admin Dose 40 MG; Start 09/13/18 at 12:00 Polyethylene Glycol (Miralax) 17 gm BID PO Last administered on 09/15/18 08:34; Admin Dose 17 GM; Start 09/13/18 at 21:00 Bisacodyl (Dulcolax) 10 mg DAILY PRN PO CONSTIPATION Last administered on 09/14/18at 19:28; Admin Dose 10 MG; Start 09/13/18 at 15:00 Ketorolac Tromethamine (Toradol) 15 mg Q6H PRN IV PAIN LEVEL 1-3; Start 09/15/18 at 12:00; Stop 09/26/18 at 09:00; Status UNV Sodium Biphosphate/ Sodium Phosphate (Fleet Enema) 133 ml DAILY PRN [place] CONSTIPATION; Start 09/15/18 at 12:00; Status UNV FRANCISCO MORENO Sep 15, 2018 12:00
--- NOTE | 2018-09-15 12:31 | CONS ---
Assessment/Plan Assessment/Plan Assessment/Plan (Daily) #Sickle Cell Crisis #iron over load # Anemia -pt's Hg has dropped to 6.0 which is certainly lower than her baseline of 7-8. -Patient agreed for blood transfusion yesterday - Still patient states that she does not want to accept blood transfusion unless she get an iron chelator given her iron overload. - sp 1 unit PRBC transfusion yesterday -will start Deferoxamine 2600mg IV q day s 5 - 7 days IV. ferritin is currently > 3000 -once she has started the iron chelation we can transfuse 2 units of PRBCS. -continue fentanyl and Toradol per pain management Patient is seen in collaboration with Dr Jang Consultation Date/Type/Reason Admit Date/Time Sep 10, 2018 at 7:21 am Initial Consult Date 09/11/18 Type of Consult oncology Reason for Consultation SIKCLE CELL ANEMIA Requesting Provider: EBONY CONTE Date/Time of Note DATE: 09/15/18 TIME: 12:31 24 HR Interval Summary Free Text/Dictation - feels better - no new events reported last night - cathy Ramos- patient agreed for blood transfusion today Constitutional: improved, requiring IVF Detailed Summary Eyes: no complaints ENT: no complaints Respiratory: no complaints Cardiovascular: no complaints Gastrointestinal: no complaints Genitourinary: no complaints Musculoskeletal: other (generelized body pain) Skin: no complaints Neurologic: no complaints Endocrine: no complaints Psychological: nl mood/affect Immunologic: no complaints Exam/Review of Systems Exam Vitals Vital Signs Date Temp Pulse Resp B/P (MAP) Pulse Ox O2 O2 Flow FiO2 Time Delivery Rate 09/15/18 11:23 09/15/18 2.0 08:45 09/15/18 28 04:19 Intake and Output 09/14/18 09/14/18 09/15/18 1515:00 23:00 07:00 IntakeIntake Total 2050 ml BalanceBalance 2050 ml Constitutional: alert, oriented Psych: nl mood/affect Head: normocephalic Eyes: EOMI, nl lids, nl sclera ENMT: nl external ears & nose Neck: non-tender Respiratory: clear to auscultation Cardiovascular: nl pulses, other (s1s2) Gastrointestinal: soft, non-tender Musculoskeletal: nl extremities to inspection Extremities: normal pulses Neurological: nl speech, other (alert/reponsive) Skin: nl turgor Lymph: nontender Results Result Diagram: 09/15/18 0533 09/14/18 0709 Results 24hrs Laboratory Tests Test 09/15/18 05:33 White Blood Count 5.8 Red Blood Count 2.04 L Hemoglobin 6.0 *L Hematocrit 17.8 L Mean Corpuscular Volume 87.3 Mean Corpuscular Hemoglobin 29.4 Mean Corpuscular Hemoglobin Concent 33.7 Red Cell Distribution Width 21.7 H Platelet Count 360 Mean Platelet Volume 9.3 Immature Granulocytes % 0.300 Neutrophils % 50.5 Lymphocytes % 35.9 Monocytes % 6.6 Eosinophils % 5.5 Basophils % 1.2 Nucleated Red Blood Cells % 4.0 H Immature Granulocytes # 0.020 Neutrophils # 2.9 Lymphocytes # 2.1 Monocytes # 0.4 Eosinophils # 0.3 Basophils # 0.1 Nucleated Red Blood Cells # 0.2 H Medications Medication Current Medications Sodium Chloride 1,000 ml @ 125 mls/hr Q8H IV Last administered on 09/15/18at 11:55; Admin Dose 150 MLS/HR; Start 09/10/18 at 13:00 IV Flush (NS 3 ml) 3 ml PER PROTOCOL IV ; Start 09/10/18 at 12:00 Ondansetron HCl (Zofran Inj) 4 mg Q6H PRN IV NAUSEA/VOMITING Last administered on 09/13/18at 23:33; Admin Dose 4 MG; Start 09/10/18 at 12:00 Acetaminophen (Tylenol Tab) 650 mg Q6H PRN PO .PAIN 1-3 OR TEMP; Start 09/10/18 at 12:00 Docusate Sodium (Colace) 100 mg Q12H PRN PO .CONSTIPATION Last administered on 09/15/18at 08:34; Admin Dose 100 MG; Start 09/10/18 at 12:00 Famotidine (Pepcid) 20 mg Q12 PO Last administered on 09/15/18at 08:34; Admin Dose 20 MG; Start 09/10/18 at 21:00 Hydroxyurea (Hydrea) 500 mg DAILY PO Last administered on 09/15/18at 08:39; Admin Dose 500 MG; Start 09/11/18 at 09:00 Acetaminophen/ Hydrocodone Bitart ([place] ([id number])) 2 tab Q4H PRN PO MODERATE PAIN LEVEL 4-6 Last administered on 09/14/18 19:28; Admin Dose 2 TAB; Start 09/12/18 at 11:00 Deferoxamine Mesylate 2500 mg/ Sodium Chloride 500 ml @ 60 mls/hr Q24H IV Last administered on 09/14/18at 19:29; Admin Dose 60 MLS/HR; Start 09/12/18 at 17:00; Stop 09/17/18 at 01:19 Hydrocortisone (Hydrocortisone 2.5% Oint) 1 applic BID PRN [place] ITCHING Last administered on 09/13/18at 04:35; Admin Dose 1 APPLIC; Start 09/13/18 at 03:00 Miscellaneous Information Patients own medicat... BID@10,16 XX ; Start 09/13/18 at 10:00 Phenol (Cepastat Lozenge) 1 lozenge Q1H PRN [place] SORE THROAT Last administered on 09/13/18at 08:48; Admin Dose 1 LOZENGE; Start 09/13/18 at 06:30 Pantoprazole (Protonix Tab) 40 mg DAILY@06 PO Last administered on 09/15/18at 06:34; Admin Dose 40 MG; Start 09/13/18 at 12:00 Polyethylene Glycol (Miralax) 17 gm BID PO Last administered on 09/15/18at 08:34; Admin Dose 17 GM; Start 09/13/18 at 21:00 Bisacodyl (Dulcolax) 10 mg DAILY PRN PO CONSTIPATION Last administered on 09/14/18at 19:28; Admin Dose 10 MG; Start 09/13/18 at 15:00 Ketorolac Tromethamine (Toradol) 15 mg Q6H PRN IV PAIN LEVEL 1-3; Start 09/15/18 at 12:00; Stop 09/26/18 at 09:00 Sodium Biphosphate/ Sodium Phosphate (Fleet Enema) 133 ml DAILY PRN [place] CONSTIPATION; Start 09/15/18 at 12:00 Diphenhydramine HCl (Benadryl) 25 mg Q6H PRN IV AGITATION/ANXIETY; Start 09/15/18 at 12:00 JH ALAN Sep 15, 2018 12:31
[2018-09-15] MEDS ORDERED: SOD CHLORIDE 0.9% 250 ML IV* ONE (13:10)
[2018-09-15] MEDS: KETOROLAC 15 MG INJ IV PRN ×2 (15:36→21:25)
[2018-09-15] MEDS: SOD CHLORIDE 0.9% IV SCH (17:34)
[2018-09-15] MEDS: DEFEROXAMINE IV SCH (17:34)
[2018-09-15] MEDS: CEPASTAT LOZENGE MT PRN (21:24)
[2018-09-16] VITALS (9 sets, daily range): BP systolic 98–120; BP diastolic 57–88; PULSE 61–82; RESP 16–19
[2018-09-16] MEDS: PANTOPRAZOLE (EC) 40 MG TAB PO SCH (07:03)
[2018-09-16] MEDS: POLYETHYLENE GLYCOL 17 GM PACKET PO SCH ×2 (08:47→20:36)
[2018-09-16] MEDS: FAMOTIDINE 20 MG TAB PO SCH ×2 (09:00→20:33)
[2018-09-16] MEDS: HYDROXYUREA 500 MG CAP PO SCH (09:09)
[2018-09-16] MEDS: SOD CHLORIDE 0.9% 1,000 ML IV SCH (09:23)
[2018-09-16] MEDS ORDERED: POTASSIUM CHLORIDE (SR) 20 MEQ TAB PO STA (10:40)
[2018-09-16] MEDS ORDERED: LORAZEPAM 2 MG INJ IV ONE (12:30)
[2018-09-16] MEDS ORDERED: FUROSEMIDE 20 MG INJ IV ONE (12:30)
--- NOTE | 2018-09-16 14:20 | CONS ---
Assessment/Plan Assessment/Plan Hospital Course (Demo Recall) #Sickle Cell Crisis #iron over load -pt's Hg has dropped to < 7 -2 untis of PRBCs ordered -continue Deferoxamine 2600mg IV q day s 5 -days IV. ferritin is currently > 3000. lase dose due tomorrow -continue fentanyl and Toradol per pain management Consultation Date/Type/Reason Admit Date/Time Sep 10, 2018 at 07:21 Initial Consult Date 09/11/18 Type of Consult Hematology Reason for Consultation sickle cell anemia Requesting Provider: EBONY CONTE Date/Time of Note DATE: 09/16/18 TIME: 14:18 24 HR Interval Summary Free Text/Dictation still c/o total body pain Exam/Review of Systems Exam Vitals Vital Signs Date Temp Pulse Resp B/P (MAP) Pulse Ox O2 O2 Flow FiO2 Time Delivery Rate 09/16/18 74 12:00 09/16/18 98.3 16 99/57 (71) 92 11:19 09/16/18 2.0 28 04:16 09/15/18 Nasal 20:00 Cannula Intake and Output 09/15/18 09/15/18 09/16/18 1515:00 23:00 07:00 IntakeIntake Total 2480 ml 500 ml BalanceBalance 2480 ml 500 ml Constitutional: alert, oriented, distress, frail Psych: no complaints, anxiety, depression Head: normocephalic Eyes: nl conjunctiva Neck: supple Respiratory: clear to auscultation Cardiovascular: regular rate and rhythm Results Result Diagram: 09/16/18 0605 09/16/18 0605 Results 24hrs Laboratory Tests Test 09/16/18 06:05 White Blood Count 6.3 Red Blood Count 2.34 L Hemoglobin 6.9 *L Hematocrit 20.5 L Mean Corpuscular Volume 87.6 Mean Corpuscular Hemoglobin 29.5 Mean Corpuscular Hemoglobin Concent 33.7 Red Cell Distribution Width 21.6 H Platelet Count 379 Mean Platelet Volume 9.8 Immature Granulocytes % 0.200 Neutrophils % Segmented Neutrophils % (Manual) 49 Band Neutrophils % (Manual) 5 H Lymphocytes % Lymphocytes % (Manual) 34 Reactive Lymphocytes % (Manual) 2 H Monocytes % Monocytes % (Manual) 5 Eosinophils % Eosinophils % (Manual) 5 Basophils % Basophils % (Manual) 1 Nucleated Red Blood Cells % 9 H Immature Granulocytes # 0.010 Neutrophils # Neutrophils # (Manual) 3.1 Band Neutrophils # 0.3 Lymphocytes (Manual) 2.1 Lymphocytes # Reactive Lymphocytes # 0.1 H Monocytes # Monocytes # (Manual) 0.3 Eosinophils # Basophils # Basophils # (Manual) 0.0 Nucleated Red Blood Cells # Platelet Estimate NORMAL Giant Platelets 1 H Polychromasia 3+ Hypochromasia 1+ Poikilocytosis 1+ Anisocytosis 2+ Microcytosis 2+ Macrocytosis 1+ Sickle Cells 1+ Target Cells 1+ Sodium Level 144 Potassium Level 3.2 L Chloride Level 107 Carbon Dioxide Level 25 Anion Gap 12 # Blood Urea Nitrogen 5 L Creatinine 0.39 L Est Glomerular Filtrat Rate mL/min > 60 Glucose Level 86 Calcium Level 8.7 Phosphorus Level 4.1 Magnesium Level 1.9 Medications Medication Current Medications Sodium Chloride 1,000 ml @ 80 mls/hr [id number] IV Last administered on 09/16/18 09:23; Admin Dose 125 MLS/HR; Start 09/10/18 at 13:00 IV Flush (NS 3 ml) 3 ml PER PROTOCOL IV ; Start 09/10/18 at 12:00 Ondansetron HCl (Zofran Inj) 4 mg Q6H PRN IV NAUSEA/VOMITING Last administered on 09/13/18 23:33; Admin Dose 4 MG; Start 09/10/18 at 12:00 Acetaminophen (Tylenol Tab) 650 mg Q6H PRN PO .PAIN 1-3 OR TEMP; Start 09/10/18 at 12:00 Docusate Sodium (Colace) 100 mg Q12H PRN PO .CONSTIPATION Last administered on 09/15/18 08:34; Admin Dose 100 MG; Start 09/10/18 at 12:00 Famotidine (Pepcid) 20 mg Q12 PO Last administered on 09/15/18 21:20; Admin Dose 20 MG; Start 09/10/18 at 21:00 Hydroxyurea (Hydrea) 500 mg DAILY PO Last administered on 09/16/18 09:09; Admin Dose 500 MG; Start 09/11/18 at 09:00 Acetaminophen/ Hydrocodone Bitart ([place] (10/325)) 2 tab Q4H PRN PO MODERATE PAIN LEVEL 4-6 Last administered on 09/14/18 19:28; Admin Dose 2 TAB; Start 09/12/18 at 11:00 Hydrocortisone (Hydrocortisone 2.5% Oint) 1 applic BID PRN TOP ITCHING Last administered on 09/13/18at 04:35; Admin Dose 1 APPLIC; Start 09/13/18 at 03:00 Miscellaneous Information Patients own medicat... BID@10,16 XX ; Start 09/13/18 at 10:00 Phenol (Cepastat Lozenge) 1 lozenge Q1H PRN [place] SORE THROAT Last administered on 09/15/18at 21:24; Admin Dose 1 LOZENGE; Start 09/13/18 at 06:30 Pantoprazole (Protonix Tab) 40 mg DAILY@06 PO Last administered on 09/16/18at 07:03; Admin Dose 40 MG; Start 09/13/18 at 12:00 Polyethylene Glycol (Miralax) 17 gm BID PO Last administered on 09/15/18at 08:34; Admin Dose 17 GM; Start 09/13/18 at 21:00 Bisacodyl (Dulcolax) 10 mg DAILY PRN PO CONSTIPATION Last administered on 09/14/18at 19:28; Admin Dose 10 MG; Start 09/13/18 at 15:00 Ketorolac Tromethamine (Toradol) 15 mg Q6H PRN IV PAIN LEVEL 1-3 Last administered on 09/15/18at 21:25; Admin Dose 15 MG; Start 09/15/18 at 12:00; Stop 09/26/18 at 09:00 Sodium Biphosphate/ Sodium Phosphate (Fleet Enema) 133 ml DAILY PRN [place] CONSTIPATION; Start 09/15/18 at 12:00 Diphenhydramine HCl (Benadryl) 25 mg Q6H PRN IV AGITATION/ANXIETY; Start 09/15/18 at 12:00 Deferoxamine Mesylate 2500 mg/ Sodium Chloride 500 ml @ 60 mls/hr Q24H IV ; Start 09/17/18 at 12:00; Stop 09/17/18 at 20:19 ALFREDA POLLOCK M.D. Sep 16, 2018 14:20
--- NOTE | 2018-09-16 16:43 | PN ---
Date/Time of Note Date/Time of Note DATE: 09/16/18 TIME: 16:37 Assessment/Plan VTE Prophylaxis Risk score (from Nsg)>0 risk: 1 SCD contraindicated: low risk/ambulating Pharmacological prophylaxis: NA/contraindicated Pharm contraindication: other Lines/Catheters IV Catheter Type (from Nrsg): Peripheral IV Urinary Cath still in place: No Assessment/Plan Hospital Course SUBJECTIVE: c/o severe abd discomfort and bloating, has been having diarrhea PHYSICAL EXAM: Constitutional: Young -Nepalese female, in significant abd distress Psych: nl mood/affect, no complaints Head: atraumatic, normocephalic Eyes: + conjuctival pallor, mild scleral icterus ENMT: mucosa pink and moist, nl external ears & nose Neck: non-tender, supple Respiratory: clear to auscultation, normal air movement Cardiovascular: nl pulses, regular rate and rhythm Gastrointestinal: non-tender, soft, bowel sounds active in all 4 quadrants. Musculoskeletal/extremities: nl extremities to inspection, motor strength equal bilaterally, no focal deficit. Normal pulses,no cyanosis, no edema. Neurological: Alert oriented 3,nl speech, nl strength Skin: nl turgor ASSESSMENT/PLAN: 27-year-old female with history of sickle cell anemia, here with sickle cell crisis. 1. Acute sickle cell crisis -patient seems to be recovering well at this time 2. abd pain and bloating likely 2/2 severe OIC and possible impaction -will get KUB, simethicone, supportive care 3. Sickle cell anemia -transfusion of 3 units so far this admission, tranfusion has been very cautious 2/2 #4, hgb seems to be staying stable. Per hematology, no further transfusion for now 3. Iron overload / Elevated ferritin -recurrent, from recurrent hemolysis -On Deferoxamine treatment, last dose tomorrow DVT prophylaxis: SCDs PUD prophylaxis: Protonix CODE STATUS: Full code Diet: Regular Dispo: severe abd pain, f/u kub Result Diagram: 09/16/18 0605 09/16/18 0605 Results 24hrs Laboratory Tests Test 09/16/18 06:05 White Blood Count 6.3 Red Blood Count 2.34 L Hemoglobin 6.9 *L Hematocrit 20.5 L Mean Corpuscular Volume 87.6 Mean Corpuscular Hemoglobin 29.5 Mean Corpuscular Hemoglobin Concent 33.7 Red Cell Distribution Width 21.6 H Platelet Count 379 Mean Platelet Volume 9.8 Immature Granulocytes % 0.200 Neutrophils % Segmented Neutrophils % (Manual) 49 Band Neutrophils % (Manual) 5 H Lymphocytes % Lymphocytes % (Manual) 34 Reactive Lymphocytes % (Manual) 2 H Monocytes % Monocytes % (Manual) 5 Eosinophils % Eosinophils % (Manual) 5 Basophils % Basophils % (Manual) 1 Nucleated Red Blood Cells % 9 H Immature Granulocytes # 0.010 Neutrophils # Neutrophils # (Manual) 3.1 Band Neutrophils # 0.3 Lymphocytes (Manual) 2.1 Lymphocytes # Reactive Lymphocytes # 0.1 H Monocytes # Monocytes # (Manual) 0.3 Eosinophils # Basophils # Basophils # (Manual) 0.0 Nucleated Red Blood Cells # Platelet Estimate NORMAL Giant Platelets 1 H Polychromasia 3+ Hypochromasia 1+ Poikilocytosis 1+ Anisocytosis 2+ Microcytosis 2+ Macrocytosis 1+ Sickle Cells 1+ Target Cells 1+ Sodium Level 144 Potassium Level 3.2 L Chloride Level 107 Carbon Dioxide Level 25 Anion Gap 12 # Blood Urea Nitrogen 5 L Creatinine 0.39 L Est Glomerular Filtrat Rate mL/min > 60 Glucose Level 86 Calcium Level 8.7 Phosphorus Level 4.1 Magnesium Level 1.9 Exam/Review of Systems Exam Vitals Vital Signs Date Temp Pulse Resp B/P (MAP) Pulse Ox O2 O2 Flow FiO2 Time Delivery Rate 09/16/18 98.5 75 18 115/67 97 16:03 (83) 09/16/18 2.0 09:50 09/16/18 Nasal 08:00 Cannula 09/16/18 28 04:16 Intake and Output 09/15/18 09/15/18 09/16/18 1515:00 23:00 07:00 IntakeIntake Total 2480 ml 500 ml BalanceBalance 2480 ml 500 ml Results Results 24hrs Laboratory Tests Test 09/16/18 06:05 White Blood Count 6.3 Red Blood Count 2.34 L Hemoglobin 6.9 *L Hematocrit 20.5 L Mean Corpuscular Volume 87.6 Mean Corpuscular Hemoglobin 29.5 Mean Corpuscular Hemoglobin Concent 33.7 Red Cell Distribution Width 21.6 H Platelet Count 379 Mean Platelet Volume 9.8 Immature Granulocytes % 0.200 Neutrophils % Segmented Neutrophils % (Manual) 49 Band Neutrophils % (Manual) 5 H Lymphocytes % Lymphocytes % (Manual) 34 Reactive Lymphocytes % (Manual) 2 H Monocytes % Monocytes % (Manual) 5 Eosinophils % Eosinophils % (Manual) 5 Basophils % Basophils % (Manual) 1 Nucleated Red Blood Cells % 9 H Immature Granulocytes # 0.010 Neutrophils # Neutrophils # (Manual) 3.1 Band Neutrophils # 0.3 Lymphocytes (Manual) 2.1 Lymphocytes # Reactive Lymphocytes # 0.1 H Monocytes # Monocytes # (Manual) 0.3 Eosinophils # Basophils # Basophils # (Manual) 0.0 Nucleated Red Blood Cells # Platelet Estimate NORMAL Giant Platelets 1 H Polychromasia 3+ Hypochromasia 1+ Poikilocytosis 1+ Anisocytosis 2+ Microcytosis 2+ Macrocytosis 1+ Sickle Cells 1+ Target Cells 1+ Sodium Level 144 Potassium Level 3.2 L Chloride Level 107 Carbon Dioxide Level 25 Anion Gap 12 # Blood Urea Nitrogen 5 L Creatinine 0.39 L Est Glomerular Filtrat Rate mL/min > 60 Glucose Level 86 Calcium Level 8.7 Phosphorus Level 4.1 Magnesium Level 1.9 Medications Medication Current Medications IV Flush (NS 3 ml) 3 ml PER PROTOCOL IV ; Start 09/10/18 at 12:00 Ondansetron HCl (Zofran Inj) 4 mg Q6H PRN IV NAUSEA/VOMITING Last administered on 09/13/18at 23:33; Admin Dose 4 MG; Start 09/10/18 at 12:00 Acetaminophen (Tylenol Tab) 650 mg Q6H PRN PO .PAIN 1-3 OR TEMP; Start 09/10/18 at 12:00 Docusate Sodium (Colace) 100 mg Q12H PRN PO .CONSTIPATION Last administered on 09/15/18at 08:34; Admin Dose 100 MG; Start 09/10/18 at 12:00 Famotidine (Pepcid) 20 mg Q12 PO Last administered on 09/15/18 21:20; Admin Dose 20 MG; Start 09/10/18 at 21:00 Hydroxyurea (Hydrea) 500 mg DAILY PO Last administered on 09/16/18 09:09; Admin Dose 500 MG; Start 09/11/18 at 09:00 Acetaminophen/ Hydrocodone Bitart ([place] (10/325)) 2 tab Q4H PRN PO MODERATE PAIN LEVEL 4-6 Last administered on 09/14/18 19:28; Admin Dose 2 TAB; Start 09/12/18 at 11:00 Hydrocortisone (Hydrocortisone 2.5% Oint) 1 applic BID PRN [place] ITCHING Last administered on 09/13/18at 04:35; Admin Dose 1 APPLIC; Start 09/13/18 at 03:00 Miscellaneous Information Patients own medicat... BID@10,16 XX ; Start 09/13/18 at 10:00 Phenol (Cepastat Lozenge) 1 lozenge Q1H PRN [place] SORE THROAT Last administered on 09/15/18at 21:24; Admin Dose 1 LOZENGE; Start 09/13/18 at 06:30 Pantoprazole (Protonix Tab) 40 mg DAILY@06 PO Last administered on 09/16/18 07:03; Admin Dose 40 MG; Start 09/13/18 at 12:00 Polyethylene Glycol (Miralax) 17 gm BID PO Last administered on 09/15/18at 08:34; Admin Dose 17 GM; Start 09/13/18 at 21:00 Bisacodyl (Dulcolax) 10 mg DAILY PRN PO CONSTIPATION Last administered on 09/14/18at 19:28; Admin Dose 10 MG; Start 09/13/18 at 15:00 Ketorolac Tromethamine (Toradol) 15 mg Q6H PRN IV PAIN LEVEL 1-3 Last administered on 09/15/18at 21:25; Admin Dose 15 MG; Start 09/15/18 at 12:00; Stop 09/26/18 at 09:00 Sodium Biphosphate/ Sodium Phosphate (Fleet Enema) 133 ml DAILY PRN [place] CONSTIPATION; Start 09/15/18 at 12:00 Diphenhydramine HCl (Benadryl) 25 mg Q6H PRN IV AGITATION/ANXIETY; Start 09/15/18 at 12:00 Deferoxamine Mesylate 2500 mg/ Sodium Chloride 500 ml @ 60 mls/hr Q24H IV ; Start 09/17/18 at 12:00; Stop 09/17/18 at 20:19 EBONY CONTE Sep 16, 2018 16:42
[2018-09-17] VITALS: BP 121/59; PULSE 67; RESP 18
[2018-09-17 04:00] VITALS: BP 104/58; PULSE 69; RESP 18
[2018-09-17 04:42] VITALS: BP 93/54; PULSE 69; RESP 16
[2018-09-17] MEDS: PANTOPRAZOLE (EC) 40 MG TAB PO SCH (05:06)
[2018-09-17 07:38] VITALS: BP 113/60; PULSE 62; RESP 18
[2018-09-17] MEDS: POLYETHYLENE GLYCOL 17 GM PACKET PO SCH ×2 (09:00→20:42)
[2018-09-17] MEDS: FAMOTIDINE 20 MG TAB PO SCH ×2 (09:00→20:43)
[2018-09-17] MEDS: HYDROXYUREA 500 MG CAP PO SCH (09:47)
[2018-09-17] MEDS ORDERED: SOD CHLORIDE 0.9% IV SCH (12:00)
[2018-09-17] MEDS ORDERED: DEFEROXAMINE IV SCH (12:00)
[2018-09-17 14:13] VITALS: BP 115/68; PULSE 96; RESP 18
[2018-09-17] MEDS ORDERED: KETO10TA PO (14:13)
[2018-09-17] MEDS ORDERED: HYDR500C3 PO (14:13)
[2018-09-17] MEDS ORDERED: SIME80TA60 PO (14:13)
--- NOTE | 2018-09-17 14:18 | PDOCDIS ---
Discharge Instructions CONDITION [id number] Patient Condition: [id number] Stable HOME CARE INSTRUCTIONS: [id number] Diet Instructions: [id number] Regular ACTIVITY: [id number] Activity Restrictions: [id number] Slowly Increase Activity Rest between Activity FOLLOW UP/APPOINTMENTS Follow-up Plan Call Dr. Jang's office for follow-up. Name, Degree: Nuzhat Jang MD Specialty: Oncology, Hematology Comments: Office Address: [address] [place] [address] Office or [phone] (after hours) Office EBONY CONTE Sep 17, 2018 14:18
--- NOTE | 2018-09-17 18:34 | DS ---
DATE OF ADMISSION: 09/10/2018 DATE OF DISCHARGE: 09/17/2018 PRESENTING COMPLAINT: Severe bone pain. FINAL DIAGNOSES: A 27-year-old female with known sickle cell anemia was managed for the followin. Acute sickle cell pain crisis: Resolving. 2. Sickle cell anemia, severe. - Transfusion of 3 units of packed red cells throughout her hospitalization. Transition was very cau tious secondary to #3. 3. Iron overload, recurrent, chronic. The patient is status post desferrioxamine treatment. 4. Abdominal pain and bloating secondary to severe opioid-induced constipation: Resolved. CONSULTS ON THE CASE: Hematology, Dr. Nuzhat Jang. INTERVENTIONS: Summarized above. SHORT HOSPITALIZATION COURSE: Full details are available in chart for review. In summary, this shannan chen is a 27-year-old female with known sickle cell anemia patient who came in acute sickle pain dhiraj is. She required intensive care unit monitoring because SHE HAS ALLERGIES TO HYDROMORPHONE, MORPHINE AND OXYCODONE and had to be treated with ____ fentanyl which required close 1 on 1 monitoring. She did well and after about 2 days was transitioned to oral therapy. However, she developed worsening a bdominal pain likely from opioid-induced constipation. This was treated with laxatives and stool sof teners. As of today, the patient is tolerating a regular diet and she is in stable condition for dis charge. Of note is that due to her iron overload however we had to transfuse very cautiously. She w as transfused the first time when her hemoglobin dropped to 5.4 and also was transfused the second ti me when the hemoglobin was at 6.0. She was treated for 5 days with desferrioxamine and has completed her course. She was recommended to follow up with hematology, Dr. Nuzhat Jang, as outpatient. She will also be sent home with home health nursing for home assessment to ensure ____ well. For furthe r information, please review her chart. DISCHARGE CONDITION: Stable. ACTIVITY: As tolerated. DISCHARGE MEDICATIONS: For complete list of discharge medications, please review the patient's chart . Time spent on discharge coordination was more than 40 minutes. Dictated By: EBONY CONTE MD, BA/ZELDA Conf#: [id number] DID#: [id number] CC: KATIE TORRES MD; FRANCISCO MORENO;*End*
[2018-09-17 20:18] VITALS: BP 94/53; PULSE 76; RESP 18
== END 2018-09-17 23:55 | disposition home health service (06) | DRG 812 ==
LOC: E/R 01:45 → 2NE 07:21 → ICU 19:00 → TEL 09-12 22:02 → MS1 09-17 04:30
PROVIDERS: ADMIT Hospitalist; ATTEND Hospitalist
PROC: 30233N1 Transfusion of Nonautologous Red Blood Cells into Peripheral Vein, Percutaneous Approach (ICD-10-PCS; principal; 2018-09-10)
DX: D57.00 Hb-SS disease with crisis, unspecified (principal); E83.19 Other disorders of iron metabolism; K59.03 Drug induced constipation; T40.2X5A Adverse effect of other opioids, initial encounter
CPT/HCPCS: 36430; 71045; 74018; 80048; 80053; 80076; 81001; 82728; 83735; 84100; 84703; 85014; 85018; 85025; 85045; 86850; 86900; 86901; 86920; 87081; 93970; 96374; 96375; J0131; J0895; J1200; J1650; J1885; J1940; J2060; J2405; J3010; J7030; J7040; P9016